=== PATIENT | female | born 1940 | race Caucasian/White ===

== ENCOUNTER 2017-08-29 06:21 | Inpatient (IN) | payer MEDICARE ==
[2017-08-29] VITALS (8 sets, daily range): BP systolic 103–149; BP diastolic 61–92; PULSE 71–96; RESP 20–26; TEMP 97.2–98.4; O2SAT 91–95
[~2017-08-29] VITALS: Ht 157.5 cm; Wt 76.8 kg
[~2017-08-29 06:21] MED LIST: ASPI81TA82 PO; CAPT50TA PO; CARV12.52 OR; DOXY100T OR; FLON0.053; FURO1TAB93 PO; LORA10TA7 PO; NITR0.4S SL; PLAV75TA PO; POTA20IN3 PO
[2017-08-29] MEDS ORDERED: RESP: ALBUTEROL 2.5 MG/IPRATROPIUM 0.5 MG NEB (SCH) NEB ONE (06:30)
[2017-08-29] MEDS ORDERED: ASPIRIN 81 MG CHEW TAB PO ONE (06:30)
[2017-08-29] MEDS ORDERED: SODIUM CHLORIDE 0.9% FLUSH 10 ML FLUSH IVF PRN (06:30)
[2017-08-29] MEDS ORDERED: NITROGLYCERIN 2% OINT 1 GM PACKET TOP ONE (06:30)
--- NOTE | 2017-08-29 06:34 | PD ---
HPI Chief Complaint: Respiratory Distress Time Seen by Provider: 06:27 Travel History International Travel<30 days: No Contact w/Intl Traveler<30days: No Traveled to known affect area: No History of Present Illness HPI 77-year-old female presents to the emergency department from home by EMS transport for complaint of sudden onset progressively worsening shortness of breath since last evening. Patient has known existing history of CAD with previous myocardial infarction dilated ischemic cardiomyopathy with left bundle branch block AICD pacemaker hypertension and episodes of flash pulmonary edema. Patient has had issues in the past with medication noncompliance or dietary discretion as triggers. Patient also has history of dyslipidemia previous CABG coronary stenting and prior alcohol use. Patient denies any recent febrile illness or productive cough. Patient had dyspnea on exertion and orthopnea. Patient did take 40 mg of Lasix this morning on her own prior to arrival of EMS and EMS gave her an additional 30 mg of Lasix. PFSH Past Medical History Narrative Medical CAD AL CHF/pulmonary edema AICD pacemaker; cholecystectomy; alcohol use; nursing notes reviewed Arthritis: Yes Asthma: No Autoimmune Disease: No Anxiety: Yes Depression: No Heart Rhythm Problems: Yes Cancer: Yes (SKIN) Cardiovascular Problems: Yes High Cholesterol: No Chemotherapy: No Chest Pain: Yes Congestive Heart Failure: Yes COPD: No Diabetes: No Endocrine: No Gastrointestinal Disorders: No GERD: No Genitourinary: No Hiatal Hernia: No Heparin Induced Thrombocytopen: No Hypertension: Yes Immune Disorder: No Implanted Vascular Access Dvce: No Kidney Stones: No Neurologic: No Psychiatric: No Reproductive: No Respiratory: Yes Myocardial Infarction: Yes (x2) Radiation Therapy: No Renal Failure: No Sickle Cell Disease: No Sleep Apnea: No Thyroid Disease: No Ulcer: No Menopausal: Yes Tubal Ligation: Yes Past Surgical History Abdominal Surgery: Yes AICD: No Arteriovenous Shunt: No Cardiac Surgery: Yes (stent x1 2012) Cholecystectomy: Yes (1998) Coronary Artery Bypass Graft: Yes (1991 1 vessel bypassed) Ear Surgery: No Endocrine Surgery: No Eye Surgery: No Genitourinary Surgery: No Gynecologic Surgery: Yes Insulin Pump: No Joint Replacement: No Neurologic Surgery: No Oral Surgery: No Pacemaker: No Thoracic Surgery: No Tonsillectomy: Yes Other Surgery: Yes Social History Alcohol Use: Yes ( 1- 2 DRINKS A DAY) Tobacco Use: No Substance Use: No Allergies-Medications (Allergen,Severity, Reaction): Coded Allergies: lovastatin (Unverified Allergy, Severe, SKIN RASH AND ITCHING, 08/29/17) acetaminophen (Unverified Adverse Reaction, Severe, "AGITATION ,DRY MOUTH , RAPID HEARTBEAT", 08/29/17) adhesive (Unverified Adverse Reaction, Severe, "SKIN KIM", 08/29/17) amoxicillin (Unverified Adverse Reaction, Severe, "DIARRHEA", 08/29/17) atenolol (Unverified Adverse Reaction, Severe, "INSOMNIA, NERVOUSNESS", 08/29/17) atorvastatin (Unverified Adverse Reaction, Severe, "EXTREME FATIGUE AND ANXIETY", 08/29/17) cetirizine (Unverified Adverse Reaction, Severe, "FATIGUE AND DROWSINESS" , 08/29/17) ciprofloxacin (Unverified Adverse Reaction, Severe, "HOT FLUSHING", 08/29/17 ) codeine (Unverified Adverse Reaction, Severe, "AGITATION, DRY MOUTH , RAPID HEARTBEAT", 08/29/17) diazepam (Unverified Adverse Reaction, Severe, "TREMORS", 08/29/17) digoxin (Unverified Adverse Reaction, Severe, "DIARRHEA AND NAUSEA", ) diltiazem (Unverified Adverse Reaction, Severe, "DIARRHEA", 08/29/17) epinephrine (Unverified Adverse Reaction, Severe, "HEART RACES, FAINTING" , 08/29/17) fexofenadine (Unverified Adverse Reaction, Severe, "EXTREME FATIGUE AND DROWSINESS", 08/29/17) lidocaine (Unverified Adverse Reaction, Severe, "EXTREME FLUSHING, HOT FEELING", 08/29/17) losartan (Unverified Adverse Reaction, Severe, "MADE HEART FEEL IT WAS LABORING TO WORK", 08/29/17) meperidine (Unverified Adverse Reaction, Severe, "DIZZINESS, RAPID HEARTBEAT", 08/29/17) procaine (Unverified Adverse Reaction, Severe, "RAPID HEARTBEAT", 08/29/17) propoxyphene (Unverified Adverse Reaction, Severe, "AGITATION ,DRY MOUTH, RAPID HEARTBEAT", 08/29/17) Uncoded Allergies: HISMANEL (Adverse Reaction, Severe, "EXTREME FATIGUE AND PVC'S, 06/29/10) SELDANE (Adverse Reaction, Severe, "PVC'S", 06/29/10) Reported Meds & Prescriptions Reported Meds & Active Scripts Active Reported Flonase Nasal Roy (Fluticasone Nasal Roy) 50 Mcg/Act Roy 100 Mcg EACH NARE BID Claritin (Loratadine) 10 Mg Cap 10 Mg PO DAILY Aspirin 81 Mg Chew 81 Mg CHEW DAILY Doxycycline (Doxycycline (Monohydrate)) 100 Mg Cap Eliquis (Apixaban) 5 Mg Tab 5 Mg PO BID Lasix (Furosemide) 40 Mg Tab 40 Mg PO DAILY [Capoten] 50 Mg PO BID TWICE DAILY PLUS 1/2 MG @ 1500. Coreg (Carvedilol) 12.5 Mg Tab 12.5 Mg PO BID Review of Systems Except as stated in HPI: all other systems reviewed are Neg General / Constitutional: No: Fever, Chills HENT: No: Congestion Cardiovascular: No: Chest Pain or Discomfort, Edema Respiratory: Positive: Shortness of Breath, Orthopnea, No: Pleuritic Pain Gastrointestinal: No: Nausea, Vomiting, Abdominal Pain Genitourinary: No: Dysuria Musculoskeletal: No: Myalgias, Arthralgias Skin: No Rash Neurologic: No: Weakness, Dizziness, Syncope Psychiatric: No: Anxiety Hematologic/Lymphatic: No: Easy Bruising Physical Exam Narrative GENERAL: Well-developed well-nourished female and moderate respiratory distress after receiving Lasix supplemental oxygen and sublingual nitroglycerin in route to the hospital SKIN: Warm and dry. HEAD: Normocephalic. EYES: No scleral icterus. No injection or drainage. NECK: Supple, trachea midline. No JVD or lymphadenopathy. CARDIOVASCULAR: Regular rate and rhythm without murmurs, gallops, or rubs. RESPIRATORY: Breath sounds equal bilaterally. No accessory muscle use. Diminished breath sounds with bibasilar crackles GASTROINTESTINAL: Abdomen soft, non-tender, nondistended. MUSCULOSKELETAL: No cyanosis, or edema. BACK: Nontender without obvious deformity. No CVA tenderness. Data Data Last Documented VS Vital Signs Date Time Temp Pulse Resp B/P (MAP) Pulse Ox O2 Delivery O2 Flow Rate FiO2 08/29/17 06:35 95 BiPAP 55 08/29/17 06:35 128/84 (99) 08/29/17 06:28 94 26 Orders Orders Electrocardiogram (08/29/17 06:27) Basic Metabolic Panel (Bmp) (08/29/17 06:27) Ckmb (Isoenzyme) Profile (08/29/17 06:27) Complete Blood Count With Diff (08/29/17 06:27) Magnesium (Mg) (08/29/17 06:27) Prothrombin Time / Inr (Pt) (08/29/17 06:27) Act Partial Throm Time (Ptt) (08/29/17 06:27) Troponin I (08/29/17 06:27) Ecg Monitoring (08/29/17 06:27) Bilateral Bp Monitoring (08/29/17 06:27) Iv Access Insert/Monitor (08/29/17 06:27) Oximetry (08/29/17 06:27) Oxygen Administration (08/29/17 06:27) Aspirin Chew (Aspirin Chew) (08/29/17 06:30) Nitroglycerin 2% Oint (Nitroglycerin 2% (08/29/17 06:30) Sodium Chloride 0.9% Flush (Ns Flush) (08/29/17 06:30) Resp Bipap / Cpap Non Invas Vt (08/29/17 ) Albuterol-Ipratropium Neb (Duoneb Neb) (08/29/17 06:30) Chest, Single Ap (08/29/17 ) Lactic Acid (08/29/17 06:43) Blood Culture (08/29/17 06:43) CKMB (08/29/17 06:25) CKMB% (08/29/17 06:25) Labs Laboratory Tests Test 08/29/17 06:25 White Blood Count 7.4 TH/MM3 Red Blood Count 4.99 MIL/MM3 Hemoglobin 15.2 GM/DL Hematocrit 47.0 % Mean Corpuscular Volume 94.2 FL Mean Corpuscular Hemoglobin 30.5 PG Mean Corpuscular Hemoglobin Concent 32.4 % Red Cell Distribution Width 14.9 % Platelet Count 199 TH/MM3 Mean Platelet Volume 8.4 FL Neutrophils (%) (Auto) 64.8 % Lymphocytes (%) (Auto) 24.8 % Monocytes (%) (Auto) 7.0 % Eosinophils (%) (Auto) 3.0 % Basophils (%) (Auto) 0.4 % Neutrophils # (Auto) 4.8 TH/MM3 Lymphocytes # (Auto) 1.8 TH/MM3 Monocytes # (Auto) 0.5 TH/MM3 Eosinophils # (Auto) 0.2 TH/MM3 Basophils # (Auto) 0.0 TH/MM3 CBC Comment DIFF FINAL Differential Comment Prothrombin Time 11.0 SEC Prothromb Time International Ratio 1.1 RATIO Activated Partial Thromboplast Time 23.7 SEC Blood Urea Nitrogen 14 MG/DL Creatinine 0.96 MG/DL Random Glucose 178 MG/DL Calcium Level 8.5 MG/DL Magnesium Level 2.3 MG/DL Sodium Level 142 MEQ/L Potassium Level 4.4 MEQ/L Chloride Level 106 MEQ/L Carbon Dioxide Level 26.9 MEQ/L Anion Gap 9 MEQ/L Estimat Glomerular Filtration Rate 56 ML/MIN Lactic Acid Level 1.9 mmol/L Total Creatine Kinase 106 U/L Troponin I 0.31 NG/ML MDM Medical Decision Making Medical Screen Exam Complete: Yes Emergency Medical Condition: Yes Medical Record Reviewed: Yes Interpretation(s) EKG ventricular paced rhythm with occasional PVCs QS inferiorly age- indeterminate poor R-wave progression liana laterally Differential Diagnosis Dyspnea/pulmonary edema CHF ACS AL renal insufficiency renal failure pneumonia PE Narrative Course Patient received from EMS stretcher placed on teletypesetter monitor with continuous pulse oximetry IV access obtained specimens collected and sent for resulting prior to arrival patient is received a total of 70 mg of Lasix p.o. and IV administration sublingual nitroglycerin 1 and arrived with CPAP has been transitioned to BiPAP. Patient is symptomatically improved. Specimens collected and sent for resulting At 7:20 PM care signed over to Dr. Maxwell for follow-up of pending labs and patient disposition with plan for admission Jacquelyn Colin MD Aug 29, 2017 06:34
[2017-08-29] MEDS ORDERED: FURO1TAB60 PO (06:35)
[2017-08-29] MEDS ORDERED: FLUT1SPR5 EACH NARE (06:35)
[2017-08-29] MEDS ORDERED: ASPI-516 CHEW (06:35)
[2017-08-29] MEDS ORDERED: CLAR10CA3 PO (06:35)
[2017-08-29] MEDS ORDERED: APIX5TAB PO (06:35)
[2017-08-29] MEDS ORDERED: DOXY1CAP91 (06:35)
[2017-08-29] MEDS ORDERED: CAPOTEN PO (06:35)
[2017-08-29] MEDS ORDERED: CARV12.5 PO (06:35)
[2017-08-29 06:54] LABS: AUTOMATED NEUTROPHIL # 4.8 TH/MM3 (1.8-7.7); BASOPHIL % 0.4 % (0.0-2.0); EOSINOPHIL # 0.2 TH/MM3 (0-0.4); HEMOGLOBIN 15.2 GM/DL (11.6-15.3); LYMPH % 24.8 % (9.0-44.0); LYMPHOCYTE # 1.8 TH/MM3 (1.0-4.8); MEAN CELL VOLUME 94.2 FL (80.0-100.0); MEAN CORPUSCULAR HEMOGLOBIN 30.5 PG (27.0-34.0); MEAN CORPUSCULAR HGB CONC 32.4 % (32.0-36.0); MEAN PLATELET VOLUME 8.4 FL (7.0-11.0); MONOCYTE # 0.5 TH/MM3 (0-0.9); NEUT % 64.8 % (16.0-70.0); PLATELET COUNT 199 TH/MM3 (150-450); RED BLOOD COUNT 4.99 MIL/MM3 (4.00-5.30); RED CELL DISTRIBUTION WIDTH 14.9 % (11.6-17.2); WHITE BLOOD COUNT 7.4 TH/MM3 (4.0-11.0)
--- NOTE | 2017-08-29 06:57 | RADRPT ---
EXAM DATE: 08/29/2017 6:50 AM EDT AGE/SEX: 77 years / Female INDICATIONS: Shortness of breath. CLINICAL DATA: This is the patient's initial encounter. Patient reports that signs and symptoms have been present for 1 day and indicates a pain score of 0/10. MEDICAL/SURGICAL HISTORY: None. Pacemaker. CABG. COMPARISON: [facility] [place], CHEST SINGLE AP, 08/13/2012. . FINDINGS: Single upright AP view the chest demonstrates persistent bilateral basilar airspace opacities. Heart size is mildly enlarged. Pulmonary vasculature is normal in caliber. Dual lead AICD. CONCLUSION: Stable appearance of emphysema and bilateral basilar atelectasis. Electronically signed by: Kaylee Castillo MD 08/29/2017 6:56 AM EDT
[2017-08-29 07:07] LABS: BICARBONATE 26.9 MEQ/L (21.0-32.0); BLOOD UREA NITROGEN 14 MG/DL (7-18); CALCIUM 8.5 MG/DL (8.5-10.1); CHLORIDE 106 MEQ/L (98-107); CREATININE 0.96 MG/DL (0.50-1.00); GLOMERULAR FILTRATION RATE 56 ML/MIN (>89); GLUCOSE,RANDOM 178 MG/DL (74-106); INTERNATIONAL NORMALIZED RATIO 1.1 RATIO; MAGNESIUM 2.3 MG/DL (1.5-2.5); SODIUM (NA) 142 MEQ/L (136-145)
[2017-08-29 07:10] LABS: TROPONIN I 0.31 NG/ML (0.02-0.05)
--- NOTE | 2017-08-29 07:45 | PD ---
Physical Exam Narrative Received sign out from previous team to follow up labs and admit patient. 77yo F with CHF, CAD s/p CABG, HLD here with sob since last night. Pt was given lasix IV by EVAC and took PO lasix herself prior to arrival. Pt was placed on BIPAP by EVAC and has been more comfortable on the BIPAP in the ED. Labs reviewed, no leukocytosis. Troponin is elevated at 0.31. Lactic acid normal at 1.9. CXR showed stable appearance of emphysema and bilateral basilar atelectasis. Pt was admitted in 2013 for pulmonary edema and elevated troponin which Dr. Marie felt was due to cardiac enzyme leak from acute on chronic systolic congestive heart failure. Pt evaluated at bedside and states she feels much better on the BIPAP. She is saturating at 98% on BIPAP. She does have bilateral lower lung crackles. She was given a nitroglycerin paste and aspirin. Will take pt off BIPAP and use it as needed and observe pt today and trend troponin. Pt doing well off Bipap on nasal cannula. Pt has no chest pain , also feel elevated troponin may be secondary to acute on chronic CHF exacerbation. BNP added and elevated at 998. Discussed with resident physician and accepted to Dr. Tobias's service. Data Data Last Documented VS Vital Signs Date Time Temp Pulse Resp B/P (MAP) Pulse Ox O2 Delivery O2 Flow Rate FiO2 08/29/17 08:08 96 24 149/67 (94) 93 BiPAP 08/29/17 06:35 55 Orders Orders Electrocardiogram (08/29/17 06:27) Basic Metabolic Panel (Bmp) (08/29/17 06:27) Ckmb (Isoenzyme) Profile (08/29/17 06:27) Complete Blood Count With Diff (08/29/17 06:27) Magnesium (Mg) (08/29/17 06:27) Prothrombin Time / Inr (Pt) (08/29/17 06:27) Act Partial Throm Time (Ptt) (08/29/17 06:27) Troponin I (08/29/17:27) Ecg Monitoring (08/29/17:27) Bilateral Bp Monitoring (08/29/17 06:27) Iv Access Insert/Monitor (08/29/17:27) Oximetry (08/29/17:27) Oxygen Administration (08/29/17 06:27) Aspirin Chew (Aspirin Chew) (08/29/17 06:30) Nitroglycerin 2% Oint (Nitroglycerin 2% (08/29/17 06:30) Sodium Chloride 0.9% Flush (Ns Flush) (08/29/17 06:30) Resp Bipap / Cpap Non Invas Vt (08/29/17 ) Albuterol-Ipratropium Neb (Duoneb Neb) (08/29/17 06:30) Chest, Single Ap (08/29/17 ) Lactic Acid (08/29/17 06:43) Blood Culture (08/29/17 06:43) CKMB (08/29/17 06:25) CKMB% (08/29/17 06:25) B-Type Natriuretic Peptide (08/29/17 07:50) Admit Order (Ed Use Only) (08/29/17 08:17) Labs Laboratory Tests Test 08/29/17 06:25 White Blood Count 7.4 TH/MM3 Red Blood Count 4.99 MIL/MM3 Hemoglobin 15.2 GM/DL Hematocrit 47.0 % Mean Corpuscular Volume 94.2 FL Mean Corpuscular Hemoglobin 30.5 PG Mean Corpuscular Hemoglobin Concent 32.4 % Red Cell Distribution Width 14.9 % Platelet Count 199 TH/MM3 Mean Platelet Volume 8.4 FL Neutrophils (%) (Auto) 64.8 % Lymphocytes (%) (Auto) 24.8 % Monocytes (%) (Auto) 7.0 % Eosinophils (%) (Auto) 3.0 % Basophils (%) (Auto) 0.4 % Neutrophils # (Auto) 4.8 TH/MM3 Lymphocytes # (Auto) 1.8 TH/MM3 Monocytes # (Auto) 0.5 TH/MM3 Eosinophils # (Auto) 0.2 TH/MM3 Basophils # (Auto) 0.0 TH/MM3 CBC Comment DIFF FINAL Differential Comment Prothrombin Time 11.0 SEC Prothromb Time International Ratio 1.1 RATIO Activated Partial Thromboplast Time 23.7 SEC Blood Urea Nitrogen 14 MG/DL Creatinine 0.96 MG/DL Random Glucose 178 MG/DL Calcium Level 8.5 MG/DL Magnesium Level 2.3 MG/DL Sodium Level 142 MEQ/L Potassium Level 4.4 MEQ/L Chloride Level 106 MEQ/L Carbon Dioxide Level 26.9 MEQ/L Anion Gap 9 MEQ/L Estimat Glomerular Filtration Rate 56 ML/MIN Lactic Acid Level 1.9 mmol/L Total Creatine Kinase 106 U/L Creatine Kinase MB 2.6 NG/ML Troponin I 0.31 NG/ML B-Type Natriuretic Peptide 998 PG/ML MDM Supervised Visit with ELVA: No Diagnosis Primary Impression: Acute on chronic systolic congestive heart failure Admitting Information Admitting Physician Requests: it Khushbu Maxwell DO Aug 29, 2017 07:45
--- NOTE | 2017-08-29 08:22 | HHI.HP ---
[facility] Service Family Medicine Primary Care Physician Kalina Astudillo MD Admission Diagnosis Acute on chronic CHF exacerbation, elevated troponin Diagnoses: International Travel<30 Days: No Contact w/Intl Traveler<30days: No Known Affected Area: No History of Present Illness Patient is a 77-year-old female with past history of myocardial infarction 2, CABG, A. fib, hypertension, CHF who presents today for shortness of breath. She reports that for the past week she has had increasing shortness of breath. It was mildly improved by increasing her daily Coreg. She was taking 12.5 in the morning and 18.75 at night, she increased it to 12.5 in the morning and 25 at night. This improved her breathing for traumatic time, however this morning her breathing was worse and she believed she needed to go to the hospital. She states it feels similar to the last time she had flash pulmonary edema in 2013. She also reports a cramps in her legs and feet this past week, however attributes it to a recent calorie restricted diet she is on. She increased her potassium intake and the cramps resolved. She denies redness, swelling of her legs, immobilization or surgery in the past 4 weeks, previous PE or DVT, hemoptysis, previous malignancy. She states she went to her manager of training, Dr. Marie, and to check her pacemaker. She reports there was over 100 A. fib events over the last week. She did note some occasional palpitations, however usually they are subtle. She reports a 1 pacemaker defibrillation in the past, however none recently. She reports she has dyspnea on exertion. While in the ED she reports her breathing has improved on BiPAP. States she does not use CPAP at night. Denies chest pain, headache, change in vision, nausea, vomiting, fever, chills, abdominal pain, change in bowel or bladder habits. No other complaints today. flash edema, since 2012,2013. Problems breathing for passed week, upped coreg. Started 12.5 am nd 25 pm. cut the night down to 18. went back 25 last week. and felt better. Cramps in legs and feet. Increased potassium because on low lucie diet, cramps went away. Sinus and allergy problems. Frank office last for pacer check. over 100 afib over last week. No CPAP at night. MURRAY worsening. Pacer for "bad heart" defib went off 1 time in the past, none recently. -VALERIO, vision, chest pain, abd, n/v/f/c diarrhea const, SOb better now, (Shaheen Gotti MD R1) Review of Systems Constitutional: DENIES: Fever, Chills Endocrine: DENIES: Polydipsia, Polyuria Eyes: DENIES: Blurred vision, Diplopia, Eye inflammation, Eye pain, Vision loss , Photosensitivity, Double Vision Ears, nose, mouth, throat: COMPLAINS OF: Tinnitus (history of), Running Nose, DENIES: Hearing loss, Ear Pain, Epistaxis Respiratory: COMPLAINS OF: Shortness of breath, DENIES: Cough, Wheezing, Hemoptysis, Sputum production Cardiovascular: COMPLAINS OF: Palpitations, Dyspnea on Exertion, DENIES: Chest pain Gastrointestinal: DENIES: Abdominal pain, Black stools, Bloody stools, Constipation, Diarrhea, Nausea Genitourinary: DENIES: Urinary frequency, Hematuria, Dysuria Integumentary: DENIES: Abnormal pigmentation, Rash Hematologic/lymphatic: DENIES: Bruising, Lymphadenopathy Immunologic/allergic: DENIES: Eczema, Urticaria Neurologic: COMPLAINS OF: Abnormal gait (nots some unsteady gait), DENIES: Headache, Localized weakness, Paresthesias Psychiatric: COMPLAINS OF: Anxiety, DENIES: Confusion, Mood changes, Suicidal Ideation, Homicidal Ideation (Shaheen Gotti MD R1) Past Family Social History Past Medical History PR x 2 CABG AFIB HTN Flash pulmonary edema CHF Seasonal allergies Past Surgical History Cholecystectomy 1999 Pacemaker 2013 (Shaheen Gotti MD R1) Allergies: Coded Allergies: lovastatin (Unverified Allergy, Severe, SKIN RASH AND ITCHING, 08/29/17) acetaminophen (Unverified Adverse Reaction, Severe, "AGITATION ,DRY MOUTH , RAPID HEARTBEAT", 08/29/17) adhesive (Unverified Adverse Reaction, Severe, "SKIN KIM", 08/29/17) amoxicillin (Unverified Adverse Reaction, Severe, "DIARRHEA", 08/29/17) atenolol (Unverified Adverse Reaction, Severe, "INSOMNIA, NERVOUSNESS", 08/29/17) atorvastatin (Unverified Adverse Reaction, Severe, "EXTREME FATIGUE AND ANXIETY", 08/29/17) cetirizine (Unverified Adverse Reaction, Severe, "FATIGUE AND DROWSINESS" , 08/29/17) ciprofloxacin (Unverified Adverse Reaction, Severe, "HOT FLUSHING", 08/29/17 ) codeine (Unverified Adverse Reaction, Severe, "AGITATION, DRY MOUTH , RAPID HEARTBEAT", 08/29/17) diazepam (Unverified Adverse Reaction, Severe, "TREMORS", 08/29/17) digoxin (Unverified Adverse Reaction, Severe, "DIARRHEA AND NAUSEA", ) diltiazem (Unverified Adverse Reaction, Severe, "DIARRHEA", 08/29/17) epinephrine (Unverified Adverse Reaction, Severe, "HEART RACES, FAINTING" , 08/29/17) fexofenadine (Unverified Adverse Reaction, Severe, "EXTREME FATIGUE AND DROWSINESS", 08/29/17) lidocaine (Unverified Adverse Reaction, Severe, "EXTREME FLUSHING, HOT FEELING", 08/29/17) losartan (Unverified Adverse Reaction, Severe, "MADE HEART FEEL IT WAS LABORING TO WORK", 08/29/17) meperidine (Unverified Adverse Reaction, Severe, "DIZZINESS, RAPID HEARTBEAT", 08/29/17) procaine (Unverified Adverse Reaction, Severe, "RAPID HEARTBEAT", 08/29/17) propoxyphene (Unverified Adverse Reaction, Severe, "AGITATION ,DRY MOUTH, RAPID HEARTBEAT", 08/29/17) Uncoded Allergies: HISMANEL (Adverse Reaction, Severe, "EXTREME FATIGUE AND PVC'S, 06/29/10) SELDANE (Adverse Reaction, Severe, "PVC'S", 06/29/10) Family History Father: Stroke at 51, heart disease Mother: Heart disease Social History EtOH: glass of wine a day Tobacco: used to smoke 1ppd for 30 years, quit 1989 Drugs: None (Shaheen Gotti MD R1) Physical Exam Vital Signs Vital Signs Date Time Temp Pulse Resp B/P (MAP) Pulse Ox O2 Delivery O2 Flow Rate FiO2 08/29/17 08:08 96 24 149/67 (94) 93 BiPAP 08/29/17 06:35 95 BiPAP 55 08/29/17 06:35 BiPAP 55 08/29/17 06:35 128/84 (99) 08/29/17 06:35 95 BiPAP 55 08/29/17 06:28 94 26 147/92 (110) 94 08/29/17 06:25 93 55 Physical Exam GENERAL: This is a well-nourished, well-developed patient, in no apparent distress. SKIN: No rashes, ecchymoses or lesions. Cool and dry. HEAD: Atraumatic. Normocephalic. No temporal or scalp tenderness. EYES: Pupils equal round and reactive. Extraocular motions intact. No scleral icterus. No injection or drainage. ENT: Nose without bleeding, purulent drainage or septal hematoma. Throat without erythema, tonsillar hypertrophy or exudate. Uvula midline. Airway patent. NECK: Trachea midline. No JVD or lymphadenopathy. Supple, nontender, no meningeal signs. CARDIOVASCULAR: Regular rate and rhythm without murmurs, gallops, or rubs. Rate/ rhythm take by auscultation and coinciding palpation at bedside. RESPIRATORY: Breath sounds equal bilaterally. Rales at b/l lung bases. No wheezes, or rhonchi. GASTROINTESTINAL: Abdomen soft, non-tender, nondistended. No hepato-splenomegaly , or palpable masses. No guarding. MUSCULOSKELETAL: Extremities without clubbing, cyanosis, or edema. No joint tenderness, effusion, or edema noted. No calf tenderness. Negative Homans sign bilaterally. NEUROLOGICAL: Awake and alert. Cranial nerves II through XII intact. Motor and sensory grossly within normal limits. Five out of 5 muscle strength in all muscle groups. Normal speech. Laboratory Laboratory Tests Test 08/29/17 06:25 White Blood Count 7.4 Red Blood Count 4.99 Hemoglobin 15.2 Hematocrit 47.0 Mean Corpuscular Volume 94.2 Mean Corpuscular Hemoglobin 30.5 Mean Corpuscular Hemoglobin Concent 32.4 Red Cell Distribution Width 14.9 Platelet Count 199 Mean Platelet Volume 8.4 Neutrophils (%) (Auto) 64.8 Lymphocytes (%) (Auto) 24.8 Monocytes (%) (Auto) 7.0 Eosinophils (%) (Auto) 3.0 Basophils (%) (Auto) 0.4 Neutrophils # (Auto) 4.8 Lymphocytes # (Auto) 1.8 Monocytes # (Auto) 0.5 Eosinophils # (Auto) 0.2 Basophils # (Auto) 0.0 CBC Comment DIFF FINAL Differential Comment Prothrombin Time 11.0 Prothromb Time International Ratio 1.1 Activated Partial Thromboplast Time 23.7 Blood Urea Nitrogen 14 Creatinine 0.96 Random Glucose 178 Calcium Level 8.5 Magnesium Level 2.3 Sodium Level 142 Potassium Level 4.4 Chloride Level 106 Carbon Dioxide Level 26.9 Anion Gap 9 Estimat Glomerular Filtration Rate 56 Lactic Acid Level 1.9 Total Creatine Kinase 106 Creatine Kinase MB 2.6 Troponin I 0.31 Date/Time Source Procedure Growth Status 08/29/17 06:50 Blood Peripheral Aerobic Blood Culture Pending Received 08/29/17 06:50 Blood Peripheral Anaerobic Blood Culture Pending Received (Shaheen Gotti MD R1) Result Diagram: 08/29/1762408/29/17624 Caprini VTE Risk Assessment Caprini VTE Risk Assessment: Mod/High Risk (score >= 2) (Shaheen Gotti MD R1) Assessment and Plan Assessment and Plan 77-year-old female with past history of myocardial infarction 2, CABG, A. fib, hypertension, CHF who presented for shortness of breath. Requiring BIPAP in ED. Likely acute on chronic CHF exacerbation. Well's score of 0. No signs of DVT. Code Status Full Discussed Condition With ED physician (Shaheen Gotti MD R1) Attending Attestation Patient seen and examined, discussed with resident team. I agree with assessment and management as documented and discussed with me. The patient has been seen and examined. The chart and all resident notes have been reviewed. I agree that inpatient care is appropriate and that a two midnight stay is expected for the reasons documented in the resident history and physical. I have discussed this with the resident and certify the resident s order for inpatient admission. Dianna Lin is a 77yo lady with significant heart history - chronic systolic CHF with EF 30-35%, AICD, a fib, and h/o flash pulmonary edema admitted after experiencing worsening SOB. She is being treated for CHF exacerbation as documented. At the time of my exam, she remains on oxygen supplementation by nasal cannula, having required BiPAP earlier in the day. Additional diagnosis: hyperglycemia: No known treatment for diabetes mellitus. May be stress response. Will monitor glucose in morning labs, and treat if needed. (Kira Tobias MD) Problem List: (1) Acute on chronic systolic congestive heart failure ICD Codes: I50.23 - Acute on chronic systolic congestive heart failure Status: Acute Plan: Patient with past history of CHF, currently with shortness of breath, crackles. Improves on BiPAP. Troponin on admission 0.31. Known to manager of training Dr. Marie. Echocardiogram in 2013 shows EF 30-35% -BiPAP as needed -Lasix 40 mg twice daily -Follow-up troponins, EKGs -Follow-up cardiology recommendations -CXR tomorrow (2) Elevated troponin I level ICD Codes: R79.89 - Elevated troponin I level Status: Acute Plan: Patient with elevated troponin of 0.31 on admission. Historically between 0.23 and 2.33. -Follow-up lab work as above (3) Afib ICD Codes: I48.91 - Unspecified atrial fibrillation Plan: History of A. fib. Reports many recent events of A. fib when having her pacemaker examined this past week. Not in A. fib when examined on admission. -Continue current outpatient meds -Follow-up cardiology or condition (4) Hypertension ICD Codes: I10 - Hypertension Status: Chronic Plan: History of hypertension. -Continue home medications (5) Parotid gland fullness ICD Codes: K11.8 - Other diseases of salivary glands Plan: History of right parotid gland scarring. On Doxycycline daily outpatient. -Continue home medications (6) FEN Plan: Fluids: -Tolerating p.o. Electrolytes: -Monitor and replete as needed Nutrition: -Tolerating p.o. PPx: -On Eliquis (Shaheen Gotti MD R1) Physician Certification 2 Midnight Certification Type: Admission for Inpatient Services Order for Inpatient Services The services are ordered in accordance with Medicare regulations or non- Medicare payer requirements, as applicable. In the case of services not specified as inpatient-only, they are appropriately provided as inpatient services in accordance with the 2-midnight benchmark. Estimated LOS (days): 2 2 days is the estimated time the patient will need to remain in the hospital, assuming treatment plan goals are met and no additional complications. Post-Hospital Plan: Home (Shaheen Gotti MD R1) Shaheen Gotti MD R1 Aug 29, 2017 08:21 Kira Tobias MD Aug 29, 2017 20:05
[2017-08-29] MEDS: SODIUM CHLORIDE 0.9% FLUSH 10 ML FLUSH IV FLUSH SCH ×2 (09:00→21:00)
[2017-08-29] MEDS ORDERED: SODIUM CHLORIDE 0.9% FLUSH 10 ML FLUSH IV FLUSH PRN (09:00)
[2017-08-29] MEDS: FUROSEMIDE 40 MG/4 ML VIAL IVP SCH ×2 (09:00→18:23)
[2017-08-29] MEDS: POTASSIUM CHLORIDE 20 MEQ CONTROLLED RELEASE TAB PO SCH ×2 (11:28→21:29)
[2017-08-29] MEDS ORDERED: EPLERENONE 25 MG TAB PO ONE (12:00)
--- NOTE | 2017-08-29 14:25 | EKG ---
Date Performed: 08/29/2017 Time Performed: 06:43:12 PTAGE: 77 years EKG: Generally atrial sense of ventricular paced rhythm with fairly frequent ventricular ectopy present. PREVIOUS TRACING : 08/26/2013 00.06 Since previous tracing, left bundle branch block has been replaced with paced rhythm. The ventricular ectopy is new. DOCTOR: Tomi Christianson Interpretating Date/Time 08/29/2017 14:23:32
--- NOTE | 2017-08-29 15:07 | MB ---
cc: Nj Bhat MD, David A MD DATE: 08/29/2017 REASON FOR CONSULTATION: Shortness of breath and congestive heart failure. PRIMARY CARE PHYSICIAN: Dr. Kalina Astudillo. HISTORY OF PRESENT ILLNESS: Ms. Lin is a 77-year-old white female with a history of ischemic cardiomyopathy, chronic systolic congestive heart failure, prior coronary artery bypass grafting, remote myocardial infarction x 2, paroxysmal atrial fibrillation, who presented to the emergency room this morning via [facility] because of paroxysmal nocturnal dyspnea last night. She tells me that she has not been feeling well over the past 2 weeks. She did have her defibrillator interrogated a couple of days ago at Dr. Marie's office and although it was functioning normally, she was told she was having frequent episodes of atrial fibrillation. She has not felt those and has had no tachycardia. She has been taking her medication as directed. She denies any angina. She has had no defibrillator discharges. CURRENT MEDICATIONS: Include: 1. Aspirin 81 mg daily. 2. Claritin 10 mg daily. 3. Flonase nasal spray 2 sprays each nostril daily. 4. Eliquis 5 mg b.i.d. 5. Carvedilol 12.5 mg b.i.d. She was taking 25 in the evening and 12.5 in the morning at home. 6. Captopril 50 mg b.i.d. 7. Furosemide 40 mg IV b.i.d. She was on 20 mg p.o. daily at home. 8. Potassium chloride 20 mEq p.o. b.i.d. ALLERGIES: EXTENSIVE LIST OF MEDICATION INTOLERANCES INCLUDING LOVASTATIN, ACETAMINOPHEN, ADHESIVE TAPE, AMOXICILLIN, ATENOLOL, ATORVASTATIN, CETIRIZINE, CIPROFLOXACIN, CODEINE, DIAZEPAM, DIGOXIN, DILTIAZEM, EPINEPHRINE, FEXOFENADINE, LIDOCAINE, LOSARTAN, MEPERIDINE, PROCAINE, PROPOXYPHENE, HISMANAL. PAST MEDICAL HISTORY: As mentioned above. In addition, she has had longstanding hypertension, recurrent episodes of flash pulmonary edema, seasonal allergies. Two myocardial infarctions remote in the . Denies history of stroke or diabetes. PAST SURGICAL HISTORY: Cholecystectomy in 1998, MOLDER OFFBEARER-D pacemaker defibrillator 2013. FAMILY HISTORY: Heart disease in father and mother. SOCIAL HISTORY: The patient consumes 1 glass of wine daily. She was a cigarette smoker of 1 pack a day for 30 years, quit in 1989. No illicit drug use. REVIEW OF SYSTEMS: Denies lower extremity edema or claudication. She does describe recent orthopnea and PND type symptoms. She denies any angina. She denies any fevers, chills, night sweats, nausea, vomiting or diarrhea. Denies bleeding or clotting disorders. Except for that mentioned in the HPI, a complete 14-point review of systems is otherwise negative. PHYSICAL EXAMINATION: GENERAL: Reveals an elderly, overweight, white female sitting up in bed in no distress at this time. VITAL SIGNS: Blood pressure 149/67 mmHg, heart rate is 96 and regular, respiratory rate 24, temperature afebrile. Oxygen saturation 93%. She was on BiPAP earlier. She is currently on nasal cannula oxygen. HEENT: Head is normocephalic and atraumatic. Pupils equal, round, reactive to light. Sclerae are anicteric. Extraocular movements intact. NECK: Supple. There is no adenopathy. There is mild jugular venous distention at 90 degrees. Carotid upstrokes normal. No bruits. Thyroid exam is normal. LUNGS: Clear at this time. HEART: PMI is slightly displaced and diffuse. S1, S2 are normal. Frequent premature contractions. There is a grade I/ systolic murmur at the base. No diastolic murmur, gallops, or rubs. ABDOMEN: Obese. Bowel sounds present. Soft and nontender. No hepatosplenomegaly, masses, or bruits. EXTREMITIES: No cyanosis, clubbing or edema. Perfusion is adequate in the upper and lower extremities. There are no femoral bruits. NEUROLOGIC: Nonfocal. DIAGNOSTIC STUDIES: An EKG from the emergency room this morning shows a sinus rhythm with electronic dual chamber pacemaker rhythm with premature ventricular contractions. Chest x-ray shows stable appearance of emphysema and bilateral basilar atelectasis. LABORATORY DATA: CBC: White count 7.4; hemoglobin 15.2; platelet count 199,000. Coags are normal. Electrolytes are normal with a potassium of 4.4, BUN 14, creatinine 0.96, glucose 178. Lactic acid 1.9. Troponin I 0.31. CPK 106. Magnesium 2.3. BNP 998. IMPRESSION: 1. Acute on chronic systolic congestive heart failure. 2. Atherosclerotic heart disease with elevated troponin I. 3. Hypertensive heart disease. 4. Intolerances to multiple medications. 5. Moderate left ventricular dysfunction, status post MOLDER OFFBEARER-D therapy. Functioning normally on recent interrogation. 6. Paroxysmal atrial fibrillation, currently in AV paced rhythm. 7. History of chronic left bundle branch block. RECOMMENDATIONS: I agree with increasing the aggressiveness of her diuresis and continue intravenous Lasix for the next 24 hours 40 mg q.12 hours. Follow I's and O's closely. Continue to monitor serial cardiac enzymes to see if they are trending up. Continue to monitor on telemetry. Leave Coreg 12.5 mg BID for now. Add Inspra 25 mg p.o. daily. Maintain electrolyte balance and a potassium of 4.0. I will continue to follow her over the weekend with additional recommendations as required. I thank you for allowing us to participate in the care of this patient. MD DONYA Shelton/HERNESTO , 12:13 PM , 03:06 PM MAURICIO
[2017-08-29 20:08] LABS: TROPONIN I 0.25 NG/ML (0.02-0.05)
[2017-08-29] MEDS: CARVEDILOL 12.5 MG TAB PO SCH (21:29)
[2017-08-29] MEDS: CAPTOPRIL 50 MG TAB PO SCH (21:29)
[2017-08-29] MEDS: APIXABAN 5 MG TABLET PO SCH (21:29)
[2017-08-30] VITALS: BP 135/81; PULSE 70; PULSE 71; RESP 20; TEMP 97.6; O2SAT 96
[2017-08-30 04:00] VITALS: BP 133/92; PULSE 75; PULSE 79; RESP 20; TEMP 97.9; O2SAT 98
--- NOTE | 2017-08-30 07:34 | PD.CARD.PN ---
Subjective Subjective Remarks Feeling better. Denies SOB or CP today. Only complaint is congested sinuses. Objective Medications Current Medications Medications (Trade) Dose Ordered Sig/Cooper Route Start Time Stop Time Status Last Admin (NS Flush) 2 ml BID IV FLUSH 08/29/17 09:00 08/29/17 21:00 (NS Flush) 2 ml UNSCH PRN IV FLUSH 08/29/17 09:00 (Lasix Inj) 40 mg BID@,18 IVP 08/29/17 09:00 08/29/17 18:23 (KCl) 20 meq BID PO 08/29/17 09:00 08/29/17 21:29 (Eliquis) 5 mg BID PO 08/29/17 21:00 08/29/17 21:29 (Aspirin Chew) 81 mg DAILY CHEW 08/30/17 09:00 (Coreg) 12.5 mg BID PO 08/29/17 21:00 08/29/17 21:29 (Claritin) 10 mg DAILY PO 08/30/17 09:00 (Flonase Faustino Spr) 2 spray DAILY EACH NARE 08/30/17 09:00 (Capoten) 50 mg BID PO 08/29/17 21:00 08/29/17 21:29 (Inspra) 25 mg DAILY PO 08/30/17 09:00 (Vibramycin) 100 mg DAILY PO 08/30/17 09:00 Vital Signs / I&O Vital Signs Date Time Temp Pulse Resp B/P (MAP) Pulse Ox O2 Delivery O2 Flow Rate FiO2 08/30/17 04:00 Nasal Cannula 4.00 08/30/17 04:00 75 08/30/17 04:00 97.9 79 20 133/92 (106) 98 08/30/17 00:00 Nasal Cannula 4.00 08/30/17 00:00 71 08/30/17 00:00 97.6 70 20 135/81 (99) 96 08/29/17 20:00 87 08/29/17 20:00 Nasal Cannula 4.00 08/29/17 20:00 97.8 72 20 103/61 (75) 94 08/29/17 16:00 98.4 78 20 136/80 (98) 94 08/29/17 12:00 97.7 77 20 140/79 (99) 91 08/29/17 12:00 87 08/29/17 10:27 Nasal Cannula 4.00 08/29/17 10:11 08/29/17 10:07 97.2 71 20 115/69 (84) 92 08/29/17 08:08 96 24 149/67 (94) 93 BiPAP I/O 08/29/17 08/29/17 08/29/17 08/30/17 08/30/17 08/30/17 07:00 15:00 23:00 07:00 15:00 23:00 Intake Total 480 ml 520 ml Output Total 300 ml Balance -300 ml 480 ml 520 ml Intake Oral 480 ml 520 ml Output Urine Total 300 ml # Voids 2 4 3 # Bowel Movements 0 1 Physical Exam VSS, afebrile No JVD @ 90 deg. Lungs: CTA Heart: Reg, s1, s2, 1/6 systolic murmur at base. Ext: No C/C/E Neuro: Non-focal Laboratory Laboratory Tests Test 08/29/17 13:02 08/29/17 19:11 Troponin I 0.26 NG/ML 0.25 NG/ML Total Creatine Kinase 124 U/L Imaging Last 48 hours Impressions Chest X-Ray 08/29/17 0000 Signed Impressions: CONCLUSION: Stable appearance of emphysema and bilateral basilar atelectasis. Assessment and Plan Assessment and Plan 1. Acute on chronic systolic congestive heart failure. Inproving. Change IV lasix to 40 PO daily today 2. Atherosclerotic heart disease with elevated troponin I indeterminate and not trending up. Likely due to exacerbation CHF. 3. Hypertensive heart disease. 4. Intolerances to multiple medications. 5. Moderate left ventricular dysfunction, status post ENERGY SPECIALIST-D therapy. Functioning normally on recent interrogation. 6. Paroxysmal atrial fibrillation, currently in AV paced rhythm. 7. History of chronic left bundle branch block. Code Status Full Discussed Condition With Discussed plans with patient. Dr. Marie's service [facility] doctor will see on Thursday. Nj Bhat MD Aug 30, 2017 07:34
[2017-08-30 07:36] LABS: HEMATOCRIT 42.7 % (35.0-46.0); HEMOGLOBIN 14.1 GM/DL (11.6-15.3); MEAN CELL VOLUME 94.4 FL (80.0-100.0); MEAN CORPUSCULAR HEMOGLOBIN 31.2 PG (27.0-34.0); MEAN PLATELET VOLUME 8.4 FL (7.0-11.0); PLATELET COUNT 157 TH/MM3 (150-450); RED BLOOD COUNT 4.53 MIL/MM3 (4.00-5.30); RED CELL DISTRIBUTION WIDTH 14.4 % (11.6-17.2); WHITE BLOOD COUNT 6.7 TH/MM3 (4.0-11.0)
[2017-08-30 08:00] VITALS: BP 135/67; PULSE 68; PULSE 73; RESP 20; TEMP 97.6; O2SAT 95
[2017-08-30 08:04] LABS: BICARBONATE 28.5 MEQ/L (21.0-32.0); CALCIUM 8.7 MG/DL (8.5-10.1); CREATININE 0.7 MG/DL (0.50-1.00)
[2017-08-30] MEDS: FLUTICASONE PROPIONATE 50 MCG/ACT 16 GM NASAL SPRAY EACH NARE SCH (09:00)
--- NOTE | 2017-08-30 10:00 | HHI.FPPN ---
Subjective Remarks No acute issues overnight. Vitals are stable, patient remains afebrile. Her O2 saturation is now 95% on RA and she denies any chest pain or shortness of breath. She continues to feel fatigued, but notes overall improvement in symptoms. She is tolerating PO. She has had 9 voids in the past 24 hours. (Jennifer Orozco MD R3) Objective Vitals Vital Signs Date Time Temp Pulse Resp B/P (MAP) Pulse Ox O2 Delivery O2 Flow Rate FiO2 08/30/17 04:00 Nasal Cannula 4.00 08/30/17 04:00 75 08/30/17 04:00 97.9 79 20 133/92 (106) 98 08/30/17 00:00 Nasal Cannula 4.00 08/30/17 00:00 71 08/30/17 00:00 97.6 70 20 135/81 (99) 96 08/29/17 20:00 87 08/29/17 20:00 Nasal Cannula 4.00 08/29/17 20:00 97.8 72 20 103/61 (75) 94 08/29/17 16:00 98.4 78 20 136/80 (98) 94 08/29/17 12:00 97.7 77 20 140/79 (99) 91 08/29/17 12:00 87 08/29/17 10:27 Nasal Cannula 4.00 08/29/17 10:11 08/29/17 10:07 97.2 71 20 115/69 (84) 92 I/O 08/29/17 08/29/17 08/29/17 08/30/17 08/30/17 08/30/17 07:00 15:00 23:00 07:00 15:00 23:00 Intake Total 480 ml 520 ml Output Total 300 ml Balance -300 ml 480 ml 520 ml Intake Oral 480 ml 520 ml Output Urine Total 300 ml # Voids 2 4 3 # Bowel Movements 0 1 (Jennifer Orozco MD R3) Result Diagram: 08/30/17 0700 08/30/17 0700 Imaging Last Impressions Chest X-Ray 08/29/17 0000 Signed Impressions: CONCLUSION: Stable appearance of emphysema and bilateral basilar atelectasis. Objective Remarks GENERAL: Well-nourished, well-developed female patient in no acute distress. SKIN: Warm and dry. HEAD: Normocephalic. EYES: No scleral icterus. No injection or drainage. NECK: Supple, trachea midline. No JVD or lymphadenopathy. CARDIOVASCULAR: Regular rate and rhythm without murmurs, gallops, or rubs. RESPIRATORY: Breath sounds equal bilaterally. No accessory muscle use. GASTROINTESTINAL: Abdomen soft, non-tender, nondistended. MUSCULOSKELETAL: No cyanosis, or edema. BACK: Nontender without obvious deformity. (Jennifer Orozco MD R3) A/P Assessment and Plan 77-year-old female with past history of myocardial infarction 2, CABG, A. fib, hypertension, CHF who presented for shortness of breath and was admitted for acute on chronic CHF exacerbation. Discharge Planning Anticipate discharge home tomorrow. (Jennifer Orozco MD R3) Attending Attestation Patient seen, examined, and discussed with resident team. I agree with assessment and management as documented and discussed with me. Pt reports breathing is better. She is tolerating Inspra. Wean off O2 as able - 95% on room air at the time of interview/exam this morning. Apprecaite cardiology. (Kira Tobias MD) Problem List: (1) Acute on chronic systolic congestive heart failure ICD Codes: I50.23 - Acute on chronic systolic congestive heart failure Status: Acute Plan: Improving. Now tolerating RA. BNP trending down. Troponin on admission 0.31, stable overnight. Known to oracle database architect Dr. Marie. Echocardiogram in 2012 shows EF 30-35% -Supplemental O2 PRN -Transition from Lasix 40 mg IV twice daily to 40mg PO daily -Cardiology consulted- appreciate recommendations (2) Afib ICD Codes: I48.91 - Unspecified atrial fibrillation Plan: History of A. fib. Reports many recent events of A. fib when having her pacemaker examined this past week. -Continue current outpatient meds (3) Hypertension ICD Codes: I10 - Hypertension Status: Chronic Plan: Stable. 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 On Doxycycline daily outpatient. -Continue home medications (5) FEN Status: Acute Plan: Fluids: -Tolerating p.o. Electrolytes: -Monitor and replete as needed Nutrition: -Heart Healthy Diet PPx: -On Eliquis (Jennifer Orozco MD R3) Problem Qualifiers (1) Afib: Qualified Codes: I48.2 - Chronic atrial fibrillation (2) Hypertension: Qualified Codes: I10 - Essential (primary) hypertension Jennifer Orozco MD R3 Aug 30, 2017 10:00 Kira Tobias MD Aug 30, 2017 14:42
[2017-08-30] MEDS: APIXABAN 5 MG TABLET PO SCH ×2 (10:15→21:07)
[2017-08-30] MEDS: DOXYCYCLINE HYCLATE 100 MG CAP PO SCH (10:15)
[2017-08-30] MEDS: CARVEDILOL 12.5 MG TAB PO SCH ×2 (10:16→21:07)
[2017-08-30] MEDS: CAPTOPRIL 50 MG TAB PO SCH ×2 (10:16→21:07)
[2017-08-30] MEDS: ASPIRIN 81 MG CHEW TAB CHEW SCH (10:16)
[2017-08-30] MEDS: SODIUM CHLORIDE 0.9% FLUSH 10 ML FLUSH IV FLUSH SCH ×2 (10:16→21:07)
[2017-08-30] MEDS: EPLERENONE 25 MG TAB PO SCH (10:16)
[2017-08-30] MEDS: LORATADINE 10 MG TAB PO SCH (10:16)
[2017-08-30] MEDS: POTASSIUM CHLORIDE 20 MEQ CONTROLLED RELEASE TAB PO SCH ×2 (10:18→21:00)
[2017-08-30] MEDS: FUROSEMIDE 40 MG TAB PO SCH (10:25)
[2017-08-30 12:00] VITALS: BP 114/62; PULSE 61; PULSE 64; RESP 20; TEMP 97.8; O2SAT 93
--- NOTE | 2017-08-30 15:43 | EKG ---
Date Performed: 08/29/2017 Time Performed: 18:58:00 PTAGE: 77 years EKG: ELECTRONIC VENTRICULAR PACEMAKER ABNORMAL RHYTHM ECG PREVIOUS TRACING : 08/29/2017 06.43 Occassional PVC present. Since the previous tracing, no sig nificant change noted. DOCTOR: Tomi Christianson Interpretating Date/Time 08/30/2017 15:42:57
[2017-08-30 16:00] VITALS: BP 129/73; PULSE 68; RESP 20; TEMP 98.2; O2SAT 92
[2017-08-30 20:00] VITALS: BP 129/61; PULSE 79; PULSE 82; RESP 20; TEMP 98.3; O2SAT 93
[2017-08-31] VITALS: BP 125/66; PULSE 65; PULSE 71; RESP 18; TEMP 98.1; O2SAT 97
[2017-08-31 04:00] VITALS: BP 145/61; PULSE 64; PULSE 71; RESP 18; TEMP 97.3; O2SAT 97
[2017-08-31 08:00] VITALS: PULSE 82
[2017-08-31 08:06] VITALS: BP 165/78; PULSE 77; RESP 18; TEMP 98.4; O2SAT 97
[2017-08-31] MEDS: SODIUM CHLORIDE 0.9% FLUSH 10 ML FLUSH IV FLUSH SCH (09:00)
[2017-08-31] MEDS: POTASSIUM CHLORIDE 20 MEQ CONTROLLED RELEASE TAB PO SCH (09:00)
[2017-08-31] MEDS: FLUTICASONE PROPIONATE 50 MCG/ACT 16 GM NASAL SPRAY EACH NARE SCH (09:00)
[2017-08-31] MEDS: LORATADINE 10 MG TAB PO SCH (10:10)
[2017-08-31] MEDS: FUROSEMIDE 40 MG TAB PO SCH (10:11)
[2017-08-31] MEDS: DOXYCYCLINE HYCLATE 100 MG CAP PO SCH (10:11)
[2017-08-31] MEDS: APIXABAN 5 MG TABLET PO SCH (10:11)
[2017-08-31] MEDS: CAPTOPRIL 50 MG TAB PO SCH (10:11)
[2017-08-31] MEDS: EPLERENONE 25 MG TAB PO SCH (10:11)
[2017-08-31] MEDS: CARVEDILOL 12.5 MG TAB PO SCH (10:11)
[2017-08-31] MEDS: ASPIRIN 81 MG CHEW TAB CHEW SCH (10:11)
--- NOTE | 2017-08-31 11:33 | HHI.FPPN ---
Subjective Remarks 77 yo female with CHF admitted for SOB from pulmonary edema now being seen for follow up. Today she feels back to normal. No CP/SOB. Off oxygen and comfortable. No swelling of the legs. (Silverio Alejandre MD R2) Objective Vitals Vital Signs Date Time Temp Pulse Resp B/P (MAP) Pulse Ox O2 Delivery O2 Flow Rate FiO2 08/31/17 08:06 98.4 77 18 165/78 (107) 97 08/31/17 08:00 82 08/31/17 08:00 Nasal Cannula 4.00 08/31/17 04:00 Nasal Cannula 4.00 08/31/17 04:00 97.3 71 18 145/61 (89) 97 08/31/17 04:00 64 08/31/17 00:00 Nasal Cannula 4.00 08/31/17 00:00 65 08/31/17 00:00 98.1 71 18 125/66 (85) 97 08/30/17 20:00 98.3 79 20 129/61 (83) 93 08/30/17 20:00 82 08/30/17 20:00 Nasal Cannula 4.00 08/30/17 16:00 68 08/30/17 16:00 98.2 68 20 129/73 (91) 92 08/30/17 12:00 97.8 64 20 114/62 (79) 93 08/30/17 12:00 61 I/O 08/30/17 08/30/17 08/30/17 08/31/17 08/31/17 08/31/17 06:59 14:59 22:59 06:59 14:59 22:59 Intake Total 520 ml 600 ml Balance 520 ml 600 ml Intake Oral 520 ml 600 ml # Voids 3 6 # Bowel Movements 1 2 (Silverio Alejandre MD R2) Result Diagram: 08/30/17 0700 08/30/17 0700 Imaging Last Impressions Chest X-Ray 08/29/17 0000 Signed Impressions: CONCLUSION: Stable appearance of emphysema and bilateral basilar atelectasis. Objective Remarks GENERAL: Well-nourished, well-developed female patient in no acute distress. SKIN: Warm and dry. NECK: Supple, trachea midline. No JVD or lymphadenopathy. CARDIOVASCULAR: Regular rate and rhythm without murmurs, gallops, or rubs. RESPIRATORY: CTAB. No crackles or wheezes. No accessory muscle use. GASTROINTESTINAL: Abdomen soft, non-tender, nondistended. MUSCULOSKELETAL: No cyanosis or edema. Medications and IVs Current Medications Medications (Trade) Dose Ordered Sig/Cooper Route Start Time Stop Time Status Last Admin (NS Flush) 2 ml BID IV FLUSH 08/29/17 09:00 08/30/17 21:07 (NS Flush) 2 ml UNSCH PRN IV FLUSH 08/29/17 09:00 (KCl) 20 meq BID PO 08/29/17 09:00 08/30/17 10:18 (Eliquis) 5 mg BID PO 08/29/17 21:00 08/31/17 10:11 (Aspirin Chew) 81 mg DAILY CHEW 08/30/17 09:00 08/31/17 10:11 (Coreg) 12.5 mg BID PO 08/29/17 21:00 08/31/17 10:11 (Claritin) 10 mg DAILY PO 08/30/17 09:00 08/31/17 10:10 (Flonase Faustino Spr) 2 spray DAILY EACH NARE 08/30/17 09:00 (Capoten) 50 mg BID PO 08/29/17 21:00 08/31/17 10:11 (Inspra) 25 mg DAILY PO 08/30/17 09:00 08/31/17 10:11 (Vibramycin) 100 mg DAILY PO 08/30/17 09:00 08/31/17 10:11 (Lasix) 40 mg DAILY PO 08/30/17 09:15 08/31/17 10:11 (Silverio Alejandre MD R2) A/P Assessment and Plan 77-year-old female with past history of myocardial infarction 2, CABG, A. fib, hypertension, CHF presenting with: (Silverio Alejandre MD R2) Attending Attestation Patient seen and examined, discussed with resident team. I agree with assessment and management as documented and discussed with me. Pt without complaints. Lungs CTAB. Maintaining sats on room air. Discharge home today. (Kira Tobias MD) Problem List: (1) Acute on chronic systolic congestive heart failure ICD Codes: I50.23 - Acute on chronic systolic congestive heart failure Status: Resolved Plan: Resolved. Now tolerating RA. BNP trending down. Troponin on admission 0.31, stable since Known to mixer runner Dr. Marie. Echocardiogram in 2013 shows EF 30-35% -Home O2 walk test -Lasix 40mg PO daily -Cardiology consulted- appreciate recommendations -To evaluate patient today for probable d/c -Started eplerenone; will check BMP on discharge (2) Afib ICD Codes: I48.91 - Unspecified atrial fibrillation Status: Chronic Plan: Rate at goal History of A. fib. Reports many recent events of A. fib when having her pacemaker examined this past week. -Continue current outpatient meds (3) Hypertension ICD Codes: I10 - Hypertension Status: Chronic Plan: Stable. 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 On Doxycycline daily outpatient. -Continue home medications (5) FEN Status: Acute Plan: Fluids: -Tolerating p.o. Electrolytes: -Monitor and replete as needed Nutrition: -Heart Healthy Diet PPx: -On Eliquis Dispo: Home today pending cardiology clearance (Silverio Alejandre MD R2) Problem Qualifiers (1) Afib: Qualified Codes: I48.2 - Chronic atrial fibrillation (2) Hypertension: Qualified Codes: I10 - Essential (primary) hypertension Silverio Alejandre MD R2 Aug 31, 2017 11:33 Kira Tobias MD Aug 31, 2017 20:32
--- NOTE | 2017-08-31 11:38 | HHI.DCPOC ---
Discharge Care Plan Diagnosis: (1) Acute on chronic systolic congestive heart failure (2) Elevated troponin I level (3) Coronary artery disease (4) Afib Goals to Promote Your Health * To prevent worsening of your condition and complications * To maintain your health at the optimal level Directions to Meet Your Goals Take your medications as prescribed Follow your dietary instruction Follow activity as directed Keep your appointments as scheduled Take your immunizations and boosters as scheduled If your symptoms worsen call your PCP, if no PCP go to Urgent Care Center or Emergency Room Smoking is Dangerous to Your Health. Avoid second hand smoke Call the 24-hour hour crisis hotline for domestic abuse at Silverio Alejandre MD R2 Aug 31, 2017 11:38
[2017-08-31 12:06] VITALS: BP 126/68; PULSE 77; RESP 16; TEMP 97.9; O2SAT 96
--- NOTE | 2017-08-31 13:45 | PD.CARD.PN ---
Subjective Subjective Remarks No CP or edema, SOB improved, feels much better Objective Medications Current Medications Medications (Trade) Dose Ordered Sig/Cooper Route Start Time Stop Time Status Last Admin (NS Flush) 2 ml BID IV FLUSH 08/29/17 09:00 08/30/17 21:07 (NS Flush) 2 ml UNSCH PRN IV FLUSH 08/29/17 09:00 (KCl) 20 meq BID PO 08/29/17 09:00 08/30/17 10:18 (Eliquis) 5 mg BID PO 08/29/17 21:00 08/31/17 10:11 (Aspirin Chew) 81 mg DAILY CHEW 08/30/17 09:00 08/31/17 10:11 (Coreg) 12.5 mg BID PO 08/29/17 21:00 08/31/17 10:11 (Claritin) 10 mg DAILY PO 08/30/17 09:00 08/31/17 10:10 (Flonase Faustino Spr) 2 spray DAILY EACH NARE 08/30/17 09:00 (Capoten) 50 mg BID PO 08/29/17 21:00 08/31/17 10:11 (Inspra) 25 mg DAILY PO 08/30/17 09:00 08/31/17 10:11 (Vibramycin) 100 mg DAILY PO 08/30/17 09:00 08/31/17 10:11 (Lasix) 40 mg DAILY PO 08/30/17 09:15 08/31/17 10:11 Vital Signs / I&O Vital Signs Date Time Temp Pulse Resp B/P (MAP) Pulse Ox O2 Delivery O2 Flow Rate FiO2 08/31/17 08:06 98.4 77 18 165/78 (107) 97 08/31/17 08:00 82 08/31/17 08:00 Nasal Cannula 4.00 08/31/17 04:00 Nasal Cannula 4.00 08/31/17 04:00 97.3 71 18 145/61 (89) 97 08/31/17 04:00 64 08/31/17 00:00 Nasal Cannula 4.00 08/31/17 00:00 65 08/31/17 00:00 98.1 71 18 125/66 (85) 97 08/30/17 20:00 98.3 79 20 129/61 (83) 93 08/30/17 20:00 82 08/30/17 20:00 Nasal Cannula 4.00 08/30/17 16:00 68 08/30/17 16:00 98.2 68 20 129/73 (91) 92 I/O 08/30/17 08/30/17 08/30/17 08/31/17 08/31/17 08/31/17 07:00 15:00 23:00 07:00 15:00 23:00 Intake Total 520 ml 600 ml Balance 520 ml 600 ml Intake Oral 520 ml 600 ml # Voids 3 6 # Bowel Movements 1 2 Physical Exam GENERAL: In NAD SKIN: Warm and dry. HEAD: Normocephalic. EYES: No scleral icterus. No injection or drainage. NECK: Supple, trachea midline. No JVD or lymphadenopathy. CARDIOVASCULAR: Regular rate and rhythm with 1/6 syst murmur, no gallops or rubs. RESPIRATORY: Breath sounds equal bilaterally. No accessory muscle use. GASTROINTESTINAL: Abdomen soft, non-tender, nondistended. MUSCULOSKELETAL: No cyanosis, or edema. Assessment and Plan Problem List: (1) Acute on chronic systolic congestive heart failure ICD Codes: I50.23 - Acute on chronic systolic congestive heart failure Status: Resolved (2) Coronary artery disease ICD Codes: I25.10 - Coronary artery disease Status: Chronic (3) Elevated troponin I level ICD Codes: R79.89 - Elevated troponin I level Status: Acute (4) Afib ICD Codes: I48.91 - Unspecified atrial fibrillation Status: Chronic (5) Hypertension ICD Codes: I10 - Hypertension Status: Chronic (6) ICD (implantable cardioverter-defibrillator) in place ICD Codes: Z95.810 - Presence of automatic (implantable) cardiac defibrillator Assessment and Plan CHF improved with diuresis. Continue current program with furosemide. Continue GDMT for CHF. No evidence of ACS. BP control. Increase activity. OK to DC home as planned. F/u w Dr. Marie within 1 week as scheduled. Problem Qualifiers (1) Afib: Qualified Codes: I48.2 - Chronic atrial fibrillation (2) Hypertension: Qualified Codes: I10 - Essential (primary) hypertension Reta Vu MD Aug 31, 2017 13:45
[2017-08-31] MEDS ORDERED: EPLE25TA PO (13:55)
[2017-08-31] MEDS ORDERED: CAPT50TA PO (15:45)
--- NOTE | 2017-09-01 12:08 | HHI.DS ---
Discharge Summary Admission Date Aug 29, 2017 at 9:00 am Discharge Date: Aug 31, 2017 Admitting Diagnosis Acute on chronic CHF exacerbation, elevated troponin (1) Acute on chronic systolic congestive heart failure Diagnosis: Principal ICD Codes: I50.23 - Acute on chronic systolic congestive heart failure Status: Resolved (2) Afib Diagnosis: Secondary ICD Codes: I48.91 - Unspecified atrial fibrillation Status: Chronic (3) Hypertension Diagnosis: Secondary ICD Codes: I10 - Hypertension Status: Chronic (4) Parotid gland fullness Diagnosis: Secondary ICD Codes: K11.8 - Other diseases of salivary glands Status: Chronic Consultants Cardiology - Drs. Vu and Jessica Brief History Patient is a 77-year-old female with past history of myocardial infarction 2, CABG, A. fib, hypertension, CHF who presents today for shortness of breath. She reports that for the past week she has had increasing shortness of breath. It was mildly improved by increasing her daily Coreg. She was taking 12.5 in the morning and 18.75 at night, she increased it to 12.5 in the morning and 25 at night. This improved her breathing for traumatic time, however this morning her breathing was worse and she believed she needed to go to the hospital. She states it feels similar to the last time she had flash pulmonary edema in 2013. She also reports a cramps in her legs and feet this past week, however attributes it to a recent calorie restricted diet she is on. She increased her potassium intake and the cramps resolved. She denies redness, swelling of her legs, immobilization or surgery in the past 4 weeks, previous PE or DVT, hemoptysis, previous malignancy. She states she went to her chopper gun operator, Dr. Marie, and to check her pacemaker. She reports there was over 100 A. fib events over the last week. She did note some occasional palpitations, however usually they are subtle. She reports a 1 pacemaker defibrillation in the past, however none recently. She reports she has dyspnea on exertion. While in the ED she reports her breathing has improved on BiPAP. States she does not use CPAP at night. Denies chest pain, headache, change in vision, nausea, vomiting, fever, chills, abdominal pain, change in bowel or bladder habits. No other complaints today. flash edema, since 2012,2013. Problems breathing for passed week, upped coreg. Started 12.5 am nd 25 pm. cut the night down to 18. went back 25 last week. and felt better. Cramps in legs and feet. Increased potassium because on low lucie diet, cramps went away. Sinus and allergy problems. Frank office last for pacer check. over 100 afib over last week. No CPAP at night. MURRAY worsening. Pacer for "bad heart" defib went off 1 time in the past, none recently. -VALERIO, vision, chest pain, abd, n/v/f/c diarrhea const, SOb better now, CBC/BMP: 08/30/17 0700 08/30/17 0700 Significant Findings Laboratory Tests Test 08/29/17 13:02 08/29/17 19:11 08/30/17 07:00 Troponin I 0.26 NG/ML (0.02-0.05) 0.25 NG/ML (0.02-0.05) Estimat Glomerular Filtration Rate 81 ML/MIN (>89) B-Type Natriuretic Peptide 363 PG/ML (0-100) Imaging Last Impressions Chest X-Ray 08/29/17 0000 Signed Impressions: CONCLUSION: Stable appearance of emphysema and bilateral basilar atelectasis. PE at Discharge GENERAL: Well-nourished, well-developed female patient in no acute distress. SKIN: Warm and dry. NECK: Supple, trachea midline. No JVD or lymphadenopathy. CARDIOVASCULAR: Regular rate and rhythm without murmurs, gallops, or rubs. RESPIRATORY: CTAB. No crackles or wheezes. No accessory muscle use. GASTROINTESTINAL: Abdomen soft, non-tender, nondistended. MUSCULOSKELETAL: No cyanosis or edema. Hospital Course 77 yo with AFib, CHF admitted for respiratory distress secondary to pulmonary edema from CHF. Her respiratory status improved with aggressive diuresis and sodium restriction / fluid restriction. After two days of treatment she was back to baseline. Eplerenone was added to her medication regimen during hospital stay. She also had ACS work up which was negative. She was cleared for discharge with outpatient cardiology follow up. Pt Condition on Discharge: Stable Discharge Disposition: Discharge Home Discharge Instructions DIET: Follow Instructions for: Heart Healthy Diet Activities you can perform: Regular-No Restrictions Follow up Referrals: Cardiology - 1 Week with Morgan Marie MD New Orders: BASIC METABOLIC PROF - 2 Weeks New Medications: Eplerenone (Eplerenone) 25 Mg Tab 25 MG PO DAILY, #30 TAB 1 Refill Continued Medications: Apixaban (Eliquis) 5 Mg Tab 5 MG PO BID for Blood Clot Prevention, #60 TAB 0 Refills Aspirin (Aspirin) 81 Mg Chew 81 MG CHEW DAILY, TAB 0 Refills Carvedilol (Coreg) 12.5 Mg Tab 12.5 MG PO BID, #60 TAB 0 Refills Doxycycline (Monohydrate) (Doxycycline) 100 Mg Cap Fluticasone Nasal [place] (Flonase Nasal [place]) 50 Mcg/Act [place] 100 MCG EACH NARE BID for Allergies, #1 BOTTLE 0 Refills Furosemide (Lasix) 40 Mg Tab 40 MG PO DAILY, #30 TAB 0 Refills Loratadine (Claritin) 10 Mg Cap 10 MG PO DAILY for Allergy Management, CAP 0 Refills Silverio Alejandre MD R2 Sep 01, 2017 12:08 pm
== END 2017-08-31 15:21 | disposition home or self-care (01) | DRG 292 ==
LOC: NEPC 06:21 → NEDA 08:19 → OBSVTOIN 09:00 → N04B 10:08
PROVIDERS: ADMIT Family Medicine; ATTEND Family Medicine
PROC: 5A09357 Assistance with Respiratory Ventilation, Less than 24 Consecutive Hours, Continuous Positive Airway Pressure (ICD-10-PCS; principal; 2017-08-29)
DX: I11.0 Hypertensive heart disease with heart failure (principal); J98.11 Atelectasis; J43.9 Emphysema, unspecified; I42.0 Dilated cardiomyopathy; I48.0 Paroxysmal atrial fibrillation; I50.23 Acute on chronic systolic (congestive) heart failure; I25.10 Atherosclerotic heart disease of native coronary artery without angina pectoris; E78.5 Hyperlipidemia, unspecified; R73.9 Hyperglycemia, unspecified; I25.5 Ischemic cardiomyopathy; R74.8 Abnormal levels of other serum enzymes; I44.7 Left bundle-branch block, unspecified; I48.2 Chronic atrial fibrillation; K11.8 Other diseases of salivary glands; R25.2 Cramp and spasm; M19.90 Unspecified osteoarthritis, unspecified site; J30.2 Other seasonal allergic rhinitis; Z95.1 Presence of aortocoronary bypass graft; Z85.828 Personal history of other malignant neoplasm of skin; Z82.3 Family history of stroke; Z82.49 Family history of ischemic heart disease and other diseases of the circulatory system; Z90.49 Acquired absence of other specified parts of digestive tract; Z95.810 Presence of automatic (implantable) cardiac defibrillator; I25.2 Old myocardial infarction; Z87.891 Personal history of nicotine dependence; Z79.01 Long term (current) use of anticoagulants; Z95.5 Presence of coronary angioplasty implant and graft
CPT/HCPCS: 71045; 80048; 82550; 82552; 83605; 83735; 83880; 84484; 85025; 85027; 85610; 85730; 87040; 93005; 94002; 94618; 94664; J1940

== ENCOUNTER 2017-09-21 08:07 | Inpatient (IN) | payer MEDICARE ==
[2017-09-21] VITALS (18 sets, daily range): BP systolic 117–189; BP diastolic 58–110; PULSE 62–110; RESP 18; TEMP 98.1–98.6; O2SAT 90–95
[~2017-09-21] VITALS: Ht 157.5 cm; Wt 80.0 kg
[~2017-09-21 08:07] MED LIST changes: +APIX5TAB PO; +ASPI-516 CHEW; -ASPI81TA82 PO; +CARV12.5 PO; -CARV12.52 OR; +CLAR10CA3 PO; -DOXY100T OR; +DOXY1CAP91; +EPLE25TA PO; -FLON0.053; +FLUT1SPR5 EACH NARE; +FURO1TAB60 PO; -FURO1TAB93 PO; -LORA10TA7 PO; -NITR0.4S SL; -PLAV75TA PO; -POTA20IN3 PO
--- NOTE | 2017-09-21 08:26 | PD ---
HPI Chief Complaint: Respiratory Distress Time Seen by Provider: 08:10 Travel History International Travel<30 days: No Contact w/Intl Traveler<30days: No Traveled to known affect area: No History of Present Illness HPI The patient is a 77-year-old female who presents to the emergency department via EMS for shortness of breath. The patient states she had difficulty sleeping all night, was unable to get comfortable, and this morning developed acute shortness of breath. The patient does have a history of acute flash pulmonary edema with recent hospitalization earlier this month. The patient is followed by her paver operator, Dr. Marie, and states her last echocardiogram was approximately 1-2 years ago. The patient denies any known history of COPD. She does complain of mild wheezing, is unsure if it is related to significant postnasal drainage or related to the lungs. The patient did take her Lasix this morning it was administered 1 DuoNeb and 2 albuterol nebulizers by EMS prior to arrival. The patient denies any known history of COPD and is not oxygen dependent at home. The patient denies any new cough or chest pain. She did complain of mild abdominal discomfort prior to the onset of her symptoms, but denies any acute chest pain. She denies any nausea, vomiting, or diaphoresis. The patient does have a history of intermittent atrial fibrillation is currently anticoagulated with Eliquis. The patient also has an event monitor and states that she had a button to send a message to her paver operator office this morning to investigate whether there was an underlying arrhythmia. PFSH Past Medical History Arthritis: Yes Asthma: No Autoimmune Disease: No Anxiety: Yes Depression: No Heart Rhythm Problems: Yes (hx afib) Cancer: Yes (SKIN) Cardiovascular Problems: Yes High Cholesterol: No Chemotherapy: No Chest Pain: Yes Congestive Heart Failure: Yes COPD: No Diabetes: No Endocrine: No Gastrointestinal Disorders: No GERD: No Genitourinary: No Hiatal Hernia: No Heparin Induced Thrombocytopen: No Hypertension: Yes Immune Disorder: No Implanted Vascular Access Dvce: No Kidney Stones: No Musculoskeletal: Yes Neurologic: No Psychiatric: No Reproductive: No Respiratory: No Myocardial Infarction: Yes (x2) Radiation Therapy: No Renal Failure: No Sickle Cell Disease: No Sleep Apnea: No Thyroid Disease: No Ulcer: No Menopausal: Yes Tubal Ligation: Yes Past Surgical History Abdominal Surgery: Yes (gallbladder 1998) AICD: Yes Arteriovenous Shunt: No Cardiac Surgery: Yes (stent x1 2013) Cholecystectomy: Yes (1998) Coronary Artery Bypass Graft: Yes (1991 1 vessel bypassed) Ear Surgery: No Endocrine Surgery: No Eye Surgery: No Genitourinary Surgery: No Gynecologic Surgery: Yes (tubal ligation) Insulin Pump: No Joint Replacement: No Neurologic Surgery: No Oral Surgery: No Pacemaker: No Thoracic Surgery: No Tonsillectomy: Yes Other Surgery: Yes Social History Alcohol Use: Yes ( 1- 2 DRINKS A DAY) Tobacco Use: No Substance Use: No Allergies-Medications (Allergen,Severity, Reaction): Coded Allergies: lovastatin (Unverified Allergy, Severe, SKIN RASH AND ITCHING, 09/21/17) acetaminophen (Unverified Adverse Reaction, Severe, "AGITATION ,DRY MOUTH , RAPID HEARTBEAT", 09/21/17) adhesive (Unverified Adverse Reaction, Severe, "SKIN KIM", 09/21/17) amoxicillin (Unverified Adverse Reaction, Severe, "DIARRHEA", 09/21/17) atenolol (Unverified Adverse Reaction, Severe, "INSOMNIA, NERVOUSNESS", ) atorvastatin (Unverified Adverse Reaction, Severe, "EXTREME FATIGUE AND ANXIETY", 09/21/17) cetirizine (Unverified Adverse Reaction, Severe, "FATIGUE AND DROWSINESS" , 09/21/17) ciprofloxacin (Unverified Adverse Reaction, Severe, "HOT FLUSHING", ) codeine (Unverified Adverse Reaction, Severe, "AGITATION, DRY MOUTH , RAPID HEARTBEAT", 09/21/17) diazepam (Unverified Adverse Reaction, Severe, "TREMORS", 09/21/17) digoxin (Unverified Adverse Reaction, Severe, "DIARRHEA AND NAUSEA", ) diltiazem (Unverified Adverse Reaction, Severe, "DIARRHEA", 09/21/17) epinephrine (Unverified Adverse Reaction, Severe, "HEART RACES, FAINTING" , 09/21/17) fexofenadine (Unverified Adverse Reaction, Severe, "EXTREME FATIGUE AND DROWSINESS", 09/21/17) lidocaine (Unverified Adverse Reaction, Severe, "EXTREME FLUSHING, HOT FEELING", 09/21/17) losartan (Unverified Adverse Reaction, Severe, "MADE HEART FEEL IT WAS LABORING TO WORK", 09/21/17) meperidine (Unverified Adverse Reaction, Severe, "DIZZINESS, RAPID HEARTBEAT", 09/21/17) procaine (Unverified Adverse Reaction, Severe, "RAPID HEARTBEAT", 09/21/17) propoxyphene (Unverified Adverse Reaction, Severe, "AGITATION ,DRY MOUTH, RAPID HEARTBEAT", 09/21/17) Uncoded Allergies: HISMANEL (Adverse Reaction, Severe, "EXTREME FATIGUE AND PVC'S, 06/29/10) SELDANE (Adverse Reaction, Severe, "PVC'S", 06/29/10) Reported Meds & Prescriptions Reported Meds & Active Scripts Active Reported Captopril 50 Mg Tab 50 Mg PO BID Take 1 hour before meals. Flonase Nasal [place] (Fluticasone Nasal [place]) 50 Mcg/Act [place] 100 Mcg EACH NARE BID Claritin (Loratadine) 10 Mg Cap 10 Mg PO DAILY Aspirin 81 Mg Chew 81 Mg CHEW DAILY Doxycycline (Doxycycline (Monohydrate)) 100 Mg Cap Eliquis (Apixaban) 5 Mg Tab 5 Mg PO BID Lasix (Furosemide) 40 Mg Tab 40 Mg PO DAILY Coreg (Carvedilol) 12.5 Mg Tab 12.5 Mg PO BID Review of Systems Except as stated in HPI: all other systems reviewed are Neg General / Constitutional: No: Fever HENT: No: Lightheadedness Cardiovascular: No: Chest Pain or Discomfort Respiratory: Positive: Shortness of Breath, Wheezing, No: Cough Gastrointestinal: Positive: Abdominal Pain (At the onset of symptoms patient had abdominal pain which is currently resolved), No: Nausea, Vomiting Musculoskeletal: No: Edema Physical Exam Narrative GENERAL: Awake, alert, pleasant 77-year-old female who appears her stated age and is in mild respiratory distress. SKIN: Focused skin assessment warm/dry. HEAD: Atraumatic. Normocephalic. EYES: Pupils equal and round. No scleral icterus. No injection or drainage. ENT: No nasal bleeding or discharge. Mucous membranes pink and moist. NECK: Trachea midline. No JVD. CARDIOVASCULAR: Regular, tachycardic with a heart rate of 110. RESPIRATORY: Tachypnea with a respiratory rate of 22. Crackles in the bases bilateral. GASTROINTESTINAL: Abdomen soft, non-tender, nondistended. MUSCULOSKELETAL: No obvious deformities. No clubbing. No cyanosis. No edema. Positive dorsalis pedal pulses bilaterally. NEUROLOGICAL: Awake and alert. No obvious cranial nerve deficits. Motor grossly within normal limits. Normal speech. PSYCHIATRIC: Appropriate mood and affect; insight and judgment normal. Data Data Last Documented VS Vital Signs Date Time Temp Pulse Resp B/P (MAP) Pulse Ox O2 Delivery O2 Flow Rate FiO2 09/21/17 08:24 91 Nasal Cannula 2.00 09/21/17 08:22 98.6 110 18 189/110 (136) Orders Orders Complete Blood Count With Diff (09/21/17 08:16) Comprehensive Metabolic Panel (09/21/17 08:16) B-Type Natriuretic Peptide (09/21/17 08:16) Act Partial Throm Time (Ptt) (09/21/17 08:16) Prothrombin Time / Inr (Pt) (09/21/17 08:16) Magnesium (Mg) (09/21/17 08:16) Ckmb (Isoenzyme) Profile (09/21/17 08:16) Troponin I (09/21/17 08:16) Iv Access Insert/Monitor (09/21/17 08:16) Electrocardiogram (09/21/17 08:16) Ecg Monitoring (09/21/17 08:16) Oximetry (09/21/17 08:16) Oxygen Administration (09/21/17 08:16) Chest, Pa & Lat (09/21/17 08:16) Sodium Chloride 0.9% Flush (Ns Flush) (09/21/17 08:30) Aspirin Chew (Aspirin Chew) (09/21/17 08:30) CKMB (09/21/17 08:25) CKMB% (09/21/17 08:25) Admit Order (Ed Use Only) (09/21/17 10:30) Labs Laboratory Tests Test 09/21/17 08:25 White Blood Count 11.1 TH/MM3 Red Blood Count 4.96 MIL/MM3 Hemoglobin 15.6 GM/DL Hematocrit 46.5 % Mean Corpuscular Volume 93.6 FL Mean Corpuscular Hemoglobin 31.4 PG Mean Corpuscular Hemoglobin Concent 33.6 % Red Cell Distribution Width 14.1 % Platelet Count 183 TH/MM3 Mean Platelet Volume 8.4 FL Neutrophils (%) (Auto) 80.1 % Lymphocytes (%) (Auto) 13.4 % Monocytes (%) (Auto) 5.3 % Eosinophils (%) (Auto) 1.0 % Basophils (%) (Auto) 0.2 % Neutrophils # (Auto) 8.9 TH/MM3 Lymphocytes # (Auto) 1.5 TH/MM3 Monocytes # (Auto) 0.6 TH/MM3 Eosinophils # (Auto) 0.1 TH/MM3 Basophils # (Auto) 0.0 TH/MM3 CBC Comment DIFF FINAL Differential Comment Prothrombin Time 10.7 SEC Prothromb Time International Ratio 1.1 RATIO Activated Partial Thromboplast Time 24.6 SEC Blood Urea Nitrogen 16 MG/DL Creatinine 0.97 MG/DL Random Glucose 130 MG/DL Total Protein 7.2 GM/DL Albumin 3.5 GM/DL Calcium Level 8.7 MG/DL Magnesium Level 2.0 MG/DL Alkaline Phosphatase 95 U/L Aspartate Amino Transf (AST/SGOT) 39 U/L Alanine Aminotransferase (ALT/SGPT) 32 U/L Total Bilirubin 0.5 MG/DL Sodium Level 141 MEQ/L Potassium Level 3.7 MEQ/L Chloride Level 106 MEQ/L Carbon Dioxide Level 23.7 MEQ/L Anion Gap 11 MEQ/L Estimat Glomerular Filtration Rate 56 ML/MIN Total Creatine Kinase 127 U/L Creatine Kinase MB 2.7 NG/ML Troponin I 0.29 NG/ML B-Type Natriuretic Peptide 547 PG/ML MDM Medical Decision Making Medical Screen Exam Complete: Yes Emergency Medical Condition: Yes Medical Record Reviewed: Yes Interpretation(s) EKG reveals electronic ventricular pacemaker with PVCs. Last Impressions Chest X-Ray 09/21/17 0816 Signed Impressions: CONCLUSION: 1. Cardiomegaly with mild positive fluid balance superimposed on chronic inter stitial changes. 2. Minimal bibasilar airspace disease, likely atelectasis. Laboratory Tests Test 09/21/17 08:25 White Blood Count 11.1 TH/MM3 Red Blood Count 4.96 MIL/MM3 Hemoglobin 15.6 GM/DL Hematocrit 46.5 % Mean Corpuscular Volume 93.6 FL Mean Corpuscular Hemoglobin 31.4 PG Mean Corpuscular Hemoglobin Concent 33.6 % Red Cell Distribution Width 14.1 % Platelet Count 183 TH/MM3 Mean Platelet Volume 8.4 FL Neutrophils (%) (Auto) 80.1 % Lymphocytes (%) (Auto) 13.4 % Monocytes (%) (Auto) 5.3 % Eosinophils (%) (Auto) 1.0 % Basophils (%) (Auto) 0.2 % Neutrophils # (Auto) 8.9 TH/MM3 Lymphocytes # (Auto) 1.5 TH/MM3 Monocytes # (Auto) 0.6 TH/MM3 Eosinophils # (Auto) 0.1 TH/MM3 Basophils # (Auto) 0.0 TH/MM3 CBC Comment DIFF FINAL Differential Comment Prothrombin Time 10.7 SEC Prothromb Time International Ratio 1.1 RATIO Activated Partial Thromboplast Time 24.6 SEC Blood Urea Nitrogen 16 MG/DL Creatinine 0.97 MG/DL Random Glucose 130 MG/DL Total Protein 7.2 GM/DL Albumin 3.5 GM/DL Calcium Level 8.7 MG/DL Magnesium Level 2.0 MG/DL Alkaline Phosphatase 95 U/L Aspartate Amino Transf (AST/SGOT) 39 U/L Alanine Aminotransferase (ALT/SGPT) 32 U/L Total Bilirubin 0.5 MG/DL Sodium Level 141 MEQ/L Potassium Level 3.7 MEQ/L Chloride Level 106 MEQ/L Carbon Dioxide Level 23.7 MEQ/L Anion Gap 11 MEQ/L Estimat Glomerular Filtration Rate 56 ML/MIN Total Creatine Kinase 127 U/L Creatine Kinase MB 2.7 NG/ML Troponin I 0.29 NG/ML B-Type Natriuretic Peptide 547 PG/ML Differential Diagnosis Differential diagnosis includes flash pulmonary edema, congestive heart failure , pleural effusion, ACS, STEMI, valvular disorder, pulmonary embolism, COPD, bronchitis, pneumonia. Narrative Course IV was established, labs are drawn and sent, and the patient was placed on cardiac telemetry monitoring and continuous pulse oximetry monitoring. EKG was ordered and interpreted. Chest x-ray was obtained. Chest x-ray reveals mild volume overload on chronic interstitial changes. BNP was greater than 500, troponin was positive at 0.29, this appears to be her baseline when compared to previous admissions. [employer] was paged to interrogate the patient's pacemaker , patient was noted to be hypoxic at 90% on room air. The patient was placed on 2 L which brought her oxygen levels up to 94%, she was reevaluated at 10:10 AM, still has mild shortness of breath and lethargy. The patient will be admitted as she does appear to have acute on chronic CHF with mild hypoxia. Patient may benefit from evaluation by her paver operator, Dr. Marie, as well as possible echocardiogram. The patient agrees and understands. Physician Communication Physician Communication [facility] were paged for admission. I discussed the patient with Dr. Horton who agrees with admission. Diagnosis Primary Impression: Acute on chronic systolic congestive heart failure Additional Impression: Elevated troponin I level Condition: Stable Shar Diallo MD Sep 21, 2017 08:26
[2017-09-21] MEDS ORDERED: SODIUM CHLORIDE 0.9% FLUSH 10 ML FLUSH IVF PRN (08:30)
[2017-09-21] MEDS ORDERED: ASPIRIN 81 MG CHEW TAB CHEW ONE (08:30)
[2017-09-21 09:02] LABS: AUTOMATED NEUTROPHIL # 8.9 TH/MM3 (1.8-7.7); BASOPHIL % 0.2 % (0.0-2.0); EOSINOPHIL # 0.1 TH/MM3 (0-0.4); HEMATOCRIT 46.5 % (35.0-46.0); HEMOGLOBIN 15.6 GM/DL (11.6-15.3); LYMPH % 13.4 % (9.0-44.0); LYMPHOCYTE # 1.5 TH/MM3 (1.0-4.8); MEAN CELL VOLUME 93.6 FL (80.0-100.0); MEAN CORPUSCULAR HEMOGLOBIN 31.4 PG (27.0-34.0); MEAN CORPUSCULAR HGB CONC 33.6 % (32.0-36.0); MEAN PLATELET VOLUME 8.4 FL (7.0-11.0); MONO % 5.3 % (0.0-8.0); MONOCYTE # 0.6 TH/MM3 (0-0.9); NEUT % 80.1 % (16.0-70.0); PLATELET COUNT 183 TH/MM3 (150-450); RED BLOOD COUNT 4.96 MIL/MM3 (4.00-5.30); RED CELL DISTRIBUTION WIDTH 14.1 % (11.6-17.2); WHITE BLOOD COUNT 11.1 TH/MM3 (4.0-11.0)
[2017-09-21 09:10] LABS: INTERNATIONAL NORMALIZED RATIO 1.1 RATIO; PROTHROMBIN TIME - PATIENT 10.7 SEC (9.8-11.6)
--- NOTE | 2017-09-21 09:16 | RADRPT ---
EXAM DATE: 09/21/2017 8:51 AM EDT AGE/SEX: 77 years / Female INDICATIONS: Shortness of breath. CLINICAL DATA: This is the patient's initial encounter. Patient reports that signs and symptoms have been present for 2 days and indicates a pain score of 0/10. MEDICAL/SURGICAL HISTORY: Congestive heart failure. Pacemaker. CABG. [place] [facility] [place]. . FINDINGS: Stable multilead AICD device with postsurgical features of prior median sternotomy and cardiac surger y. Redemonstration of lower lobe predominant diffuse interstitial prominence. Minimal by basilar airs pace disease. Cardiac silhouette is enlarged with slight indistinct central pulmonary vascularity. [place] ny thorax is intact. CONCLUSION: 1. Cardiomegaly with mild positive fluid balance superimposed on chronic interstitial changes. 2. Minimal bibasilar airspace disease, likely atelectasis. Electronically signed by: Narendra Cox MD 09/21/2017 9:15 AM EDT
[2017-09-21 09:17] LABS: ALBUMIN 3.5 GM/DL (3.4-5.0); AST (GOT) 39 U/L (15-37); BICARBONATE 23.7 MEQ/L (21.0-32.0); BLOOD UREA NITROGEN 16 MG/DL (7-18); CALCIUM 8.7 MG/DL (8.5-10.1); CHLORIDE 106 MEQ/L (98-107); CREATININE 0.97 MG/DL (0.50-1.00); GLOMERULAR FILTRATION RATE 56 ML/MIN (>89); GLUCOSE,RANDOM 130 MG/DL (74-106); SODIUM (NA) 141 MEQ/L (136-145)
[2017-09-21 09:18] LABS: ALT (GPT) 32 U/L (10-53)
[2017-09-21 09:24] LABS: ALKALINE PHOSPHATASE 95 U/L (45-117); TOTAL BILIRUBIN ADULT 0.5 MG/DL (0.2-1.0); TOTAL PROTEIN 7.2 GM/DL (6.4-8.2); TROPONIN I 0.29 NG/ML (0.02-0.05)
[2017-09-21] MEDS ORDERED: ONDANSETRON HCL 4 MG/2 ML VIAL IVP PRN (10:45)
[2017-09-21] MEDS ORDERED: ACETAMINOPHEN 325 MG TAB PO PRN (10:45)
[2017-09-21] MEDS ORDERED: SENNOSIDES 8.6 MG TAB PO PRN (10:45)
[2017-09-21] MEDS ORDERED: MAGNESIUM HYDROXIDE SUSP 30 ML CUP PO PRN (10:45)
[2017-09-21] MEDS ORDERED: LACTULOSE SYRUP 20 GM/30 ML CUP PO PRN (10:45)
[2017-09-21] MEDS ORDERED: NALOXONE HCL 0.4 MG/ML AMP IV PUSH PRN (10:45)
[2017-09-21] MEDS ORDERED: BISACODYL 10 MG SUPP RECTAL PRN (10:45)
[2017-09-21] MEDS ORDERED: SODIUM CHLORIDE 0.9% FLUSH 10 ML FLUSH IV FLUSH PRN (10:45)
[2017-09-21] MEDS ORDERED: FUROSEMIDE 20 MG/2 ML VIAL IV PUSH SCH (11:00)
--- NOTE | 2017-09-21 11:14 | HHI.HP ---
[facility] Service [facility] ([place], [place])ists Primary Care Physician Kalina Astudillo MD Admission Diagnosis Acute on chronic congestive heart failure, elevated troponin, hypoxi Diagnoses: (1) Elevated troponin I level (2) Acute on chronic systolic congestive heart failure (3) ICD (implantable cardioverter-defibrillator) in place (4) Hypertension (5) Coronary artery disease Chief Complaint: "Flash pulmonary edema" Travel History International Travel<30 Days: No Contact w/Intl Traveler <30 Da: No Traveled to Known Affected Are: No History of Present Illness The patient is a 77-year-old female with known history of congestive heart failure and multiple recent admissions who presented to the emergency department for complaint of "flash pulmonary edema". She states that she did not sleep well last night and developed worsening shortness of breath this morning. Her symptoms got much worse at about 7:00 this morning. She denies chest pain. She has an event monitor and pressed the button to notify her change management lead that she was potentially feeling an arrhythmia. She also has an implanted defibrillator, which has been interrogated by the [employer] rep this morning. It appears to be functioning normally. It did not fire. She states that she is feeling a little bit better at this time. She took her Lasix 40 mg this morning, but none of her other medications. Review of Systems Constitutional: DENIES: Fever, Chills, Night Sweats Eyes: DENIES: Blurred vision, Vision loss Ears, nose, mouth, throat: DENIES: Hearing loss Respiratory: COMPLAINS OF: Shortness of breath, DENIES: Cough, Wheezing, Sputum production Cardiovascular: COMPLAINS OF: Dyspnea on Exertion, DENIES: Chest pain, Palpitations, Lower Extremity Edema Gastrointestinal: DENIES: Abdominal pain, Constipation, Diarrhea, Nausea, Vomiting Genitourinary: DENIES: Urinary frequency, Urinary incontinence, Urgency, Hematuria, Dysuria, Nocturia Musculoskeletal: DENIES: Joint pain, Muscle aches Integumentary: DENIES: Pruritus, Rash Hematologic/lymphatic: DENIES: Bruising Neurologic: DENIES: Headache Past Family Social History Past Medical History Atrial fibrillation CAD Chronic systolic CHF Hypertension Hx of skin cancer Past Surgical History Cholecystectomy AICD placement Cardiac catheterization with stent placement CABG in 1991 Tubal ligation Tonsillectomy Reported Medications Captopril 50 Mg Tab 50 Mg PO BID Take 1 hour before meals. Flonase Nasal [place] (Fluticasone Nasal [place]) 50 Mcg/Act [place] 100 Mcg EACH NARE BID Claritin (Loratadine) 10 Mg Cap 10 Mg PO DAILY Aspirin 81 Mg Chew 81 Mg CHEW DAILY Doxycycline (Doxycycline (Monohydrate)) 100 Mg Cap Eliquis (Apixaban) 5 Mg Tab 5 Mg PO BID Lasix (Furosemide) 40 Mg Tab 40 Mg PO DAILY Coreg (Carvedilol) 12.5 Mg Tab 12.5 Mg PO BID Allergies: Coded Allergies: lovastatin (Unverified Allergy, Severe, SKIN RASH AND ITCHING, 09/21/17) acetaminophen (Unverified Adverse Reaction, Severe, "AGITATION ,DRY MOUTH , RAPID HEARTBEAT", 09/21/17) adhesive (Unverified Adverse Reaction, Severe, "SKIN KIM", 09/21/17) amoxicillin (Unverified Adverse Reaction, Severe, "DIARRHEA", 09/21/17) atenolol (Unverified Adverse Reaction, Severe, "INSOMNIA, NERVOUSNESS", ) atorvastatin (Unverified Adverse Reaction, Severe, "EXTREME FATIGUE AND ANXIETY", 09/21/17) cetirizine (Unverified Adverse Reaction, Severe, "FATIGUE AND DROWSINESS" , 09/21/17) ciprofloxacin (Unverified Adverse Reaction, Severe, "HOT FLUSHING", ) codeine (Unverified Adverse Reaction, Severe, "AGITATION, DRY MOUTH , RAPID HEARTBEAT", 09/21/17) diazepam (Unverified Adverse Reaction, Severe, "TREMORS", 09/21/17) digoxin (Unverified Adverse Reaction, Severe, "DIARRHEA AND NAUSEA", ) diltiazem (Unverified Adverse Reaction, Severe, "DIARRHEA", 09/21/17) epinephrine (Unverified Adverse Reaction, Severe, "HEART RACES, FAINTING" , 09/21/17) fexofenadine (Unverified Adverse Reaction, Severe, "EXTREME FATIGUE AND DROWSINESS", 09/21/17) lidocaine (Unverified Adverse Reaction, Severe, "EXTREME FLUSHING, HOT FEELING", 09/21/17) losartan (Unverified Adverse Reaction, Severe, "MADE HEART FEEL IT WAS LABORING TO WORK", 09/21/17) meperidine (Unverified Adverse Reaction, Severe, "DIZZINESS, RAPID HEARTBEAT", 09/21/17) procaine (Unverified Adverse Reaction, Severe, "RAPID HEARTBEAT", 09/21/17) propoxyphene (Unverified Adverse Reaction, Severe, "AGITATION ,DRY MOUTH, RAPID HEARTBEAT", 09/21/17) Uncoded Allergies: HISMANEL (Adverse Reaction, Severe, "EXTREME FATIGUE AND PVC'S, 06/29/10) SELDANE (Adverse Reaction, Severe, "PVC'S", 06/29/10) Family History CVA, heart disease Social History Drinks a glass of wine daily. Smokes 1 pack per day for 30 years but quit in 1989. Denies illicit drug use. Physical Exam Vital Signs Vital Signs Date Time Temp Pulse Resp B/P (MAP) Pulse Ox O2 Delivery O2 Flow Rate FiO2 09/21/17 11:03 70 18 135/71 (92) 95 Nasal Cannula 2.00 09/21/17 08:24 91 Nasal Cannula 2.00 09/21/17 08:22 98.6 110 18 189/110 (136) 92 Nasal Cannula 2.00 09/21/17 08:21 91 Nasal Cannula 2.00 09/21/17 08:12 90 Physical Exam GENERAL: Well-nourished, well-developed female in no acute distress. HEENT: Normocephalic, atraumatic. Pupils equal, round and reactive. Extraocular movements intact. No scleral icterus. No injection or drainage. Oropharynx is clear. Mucous membranes are moist. CARDIOVASCULAR: Regular rate and rhythm without murmurs, gallops, or rubs. RESPIRATORY: Decreased breath sounds at both bases, left greater than right. No wheezes, rales, or rhonchi. Breathing is non-labored. GASTROINTESTINAL: Abdomen soft, non-tender, nondistended. EXTREMITIES: No lower extremity edema. No calf tenderness. PSYCH: Alert and oriented x 3. Laboratory Laboratory Tests Test 09/21/17 08:25 White Blood Count 11.1 Red Blood Count 4.96 Hemoglobin 15.6 Hematocrit 46.5 Mean Corpuscular Volume 93.6 Mean Corpuscular Hemoglobin 31.4 Mean Corpuscular Hemoglobin Concent 33.6 Red Cell Distribution Width 14.1 Platelet Count 183 Mean Platelet Volume 8.4 Neutrophils (%) (Auto) 80.1 Lymphocytes (%) (Auto) 13.4 Monocytes (%) (Auto) 5.3 Eosinophils (%) (Auto) 1.0 Basophils (%) (Auto) 0.2 Neutrophils # (Auto) 8.9 Lymphocytes # (Auto) 1.5 Monocytes # (Auto) 0.6 Eosinophils # (Auto) 0.1 Basophils # (Auto) 0.0 CBC Comment DIFF FINAL Differential Comment Prothrombin Time 10.7 Prothromb Time International Ratio 1.1 Activated Partial Thromboplast Time 24.6 Blood Urea Nitrogen 16 Creatinine 0.97 Random Glucose 130 Total Protein 7.2 Albumin 3.5 Calcium Level 8.7 Magnesium Level 2.0 Alkaline Phosphatase 95 Aspartate Amino Transf (AST/SGOT) 39 Alanine Aminotransferase (ALT/SGPT) 32 Total Bilirubin 0.5 Sodium Level 141 Potassium Level 3.7 Chloride Level 106 Carbon Dioxide Level 23.7 Anion Gap 11 Estimat Glomerular Filtration Rate 56 Total Creatine Kinase 127 Creatine Kinase MB 2.7 Troponin I 0.29 B-Type Natriuretic Peptide 547 Result Diagram: 09/21/1782409/21/17824 Imaging Last Impressions Chest X-Ray 09/21/17 0816 Signed Impressions: CONCLUSION: 1. Cardiomegaly with mild positive fluid balance superimposed on chronic inter stitial changes. 2. Minimal bibasilar airspace disease, likely atelectasis. Caprini VTE Risk Assessment Caprini VTE Risk Assessment: Mod/High Risk (score >= 2) Caprini Risk Assessment Model Point Value = 1 Point Value = 2 Point Value = 3 Point Value = 5 Age 41-60 Minor surgery BMI > 25 kg/m2 Swollen legs Varicose veins or History of unexplained or recurrent spontaneous Oral contraceptives or hormone replacement Sepsis (< 1 month) Serious lung disease, including pneumonia (< 1 month) Abnormal pulmonary function Acute myocardial infarction Congestive heart failure (< 1 month) History of inflammatory bowel disease Medical patient at bed rest Age 61-74 Arthroscopic surgery Major open surgery (> 45 min) Laparoscopic surgery (> 45 min) Malignancy Confined to bed (> 72 hours) Immobilizing plaster cast Central venous access Age >= 75 History of VTE Family history of VTE Factor V Leiden Prothrombin [id number] Lupus anticoagulant Anticardiolipin antibodies Elevated serum homocysteine Heparin-induced thrombocytopenia Other congenital or acquired thrombophilia Stroke (< 1 month) Elective arthroplasty Hip, pelvis, or leg fracture Acute spinal cord injury (< 1 month) Prophylaxis Regimen Total Risk Factor Score Risk Level Prophylaxis Regimen 0-1 Low Early ambulation 2 Moderate Order ONE of the following: *Sequential Compression Device (SCD) *Heparin 5000 units SQ BID 3-4 Higher Order ONE of the following medications: *Heparin 5000 units SQ TID *Enoxaparin/Lovenox 40 mg SQ daily (WT < 150 kg, CrCl > 30 mL/min) *Enoxaparin/Lovenox 30 mg SQ daily (WT < 150 kg, CrCl > 10-29 mL/min) *Enoxaparin/Lovenox 30 mg SQ BID (WT < 150 kg, CrCl > 30 mL/min) AND/OR *Sequential Compression Device (SCD) 5 or more Highest Order ONE of the following medications: *Heparin 5000 units SQ TID (Preferred with Epidurals) *Enoxaparin/Lovenox 40 mg SQ daily (WT < 150 kg, CrCl > 30 mL/min) *Enoxaparin/Lovenox 30 mg SQ daily (WT < 150 kg, CrCl > 10-29 mL/min) *Enoxaparin/Lovenox 30 mg SQ BID (WT < 150 kg, CrCl > 30 mL/min) AND *Sequential Compression Device (SCD) Assessment and Plan Assessment and Plan 1. Acute exacerbation of chronic systolic congestive heart failure: Continue diuresis with Lasix IV. Check 2D echocardiogram. Consult patient's change management lead. Monitor on telemetry. Continue Coreg. 2. Elevated troponin: Likely at baseline. Check serial cardiac enzymes. 3. Hypertension: Continue Lasix, captopril, Coreg. 4. Atrial fibrillation: Continue Coreg. Continue Eliquis. 5. DVT prophylaxis: Eliquis. Elias Horton MD Sep 21, 2017 11:14
[2017-09-21] MEDS ORDERED: FUROSEMIDE 20 MG/2 ML VIAL IV PUSH ONE (11:30)
[2017-09-21] MEDS: POTASSIUM CHLORIDE 20 MEQ CONTROLLED RELEASE TAB PO SCH (12:07)
--- NOTE | 2017-09-21 15:20 | MB ---
cc: Reta Vu MD DATE: 09/21/2017 HISTORY OF PRESENT ILLNESS: Ms. Lin is a very pleasant 77-year-old white female with history of ischemic cardiomyopathy, ejection fraction less than 30%, chronic systolic congestive heart failure, coronary bypass and left circumflex stenting, Medtronic Bi-V ICD and AV janet ablation, who presented with severe shortness of breath. Early this morning, she started to develop shortness of breath, took Lasix and within an hour, her symptoms progressively worsened and she presented to the emergency room. Her device was interrogated this morning and her OptiVol has reportedly been unremarkable. The patient's symptoms have improved with IV Lasix. She has not had any angina. PAST MEDICAL HISTORY: Positive for recent admission for flash pulmonary edema on 08/29/2017, history of chronic systolic congestive heart failure, ejection fraction less than 30%, ischemic cardiomyopathy, left circumflex artery stenting, coronary bypass, Medtronic biventricular ICD, history of AV janet ablation, dyslipidemia, hypertension, history of skin cancer, cholecystectomy, tubal ligation, tonsillectomy. MEDICATIONS: Include: 1. Captopril. 2. Flonase. 3. Claritin. 4. Aspirin. 5. Doxycycline. 6. Eliquis. 7. Lasix. 8. Coreg. ALLERGIES: PROPOXYPHENE, PROCAINE, MEPERIDINE, LOSARTAN, LIDOCAINE, FEXOFENADINE, EPINEPHRINE, DILTIAZEM, DIGOXIN, DIAZEPAM, CODEINE, CIPROFLOXACIN, CETIRIZINE, ATORVASTATIN, ATENOLOL, AMOXICILLIN, ADHESIVE, ACETAMINOPHEN, LOVASTATIN. SOCIAL HISTORY: The patient quit smoking in 1989. She drinks a glass of wine daily. FAMILY HISTORY: Positive for heart disease. REVIEW OF SYSTEMS: Otherwise negative. PHYSICAL EXAMINATION: VITAL SIGNS: Blood pressure 135/71, pulse 86, regular. HEENT: Negative. NECK: 2+ carotid upstrokes. No bruits. LUNGS: Clear with decreased breath sounds at bases. HEART: Regular with no murmur or gallop. ABDOMEN: Soft. No bruits. EXTREMITIES: Trace edema, 1+ distal pulses. NEUROLOGIC: Grossly nonfocal. LABORATORY DATA: EKG was reviewed and showed biventricular pacing and PVCs. Hemoglobin 15.6, potassium 3.7, creatinine 1.0, magnesium 2.0, AST 39, ALT 32. Troponin 0.29. BNP 547. ASSESSMENT AND PLAN: 1. Acute exacerbation of chronic systolic congestive heart failure. 2. Ischemic cardiomyopathy with severe left ventricular systolic dysfunction. 3. Mildly elevated troponin. 4. Coronary artery disease with a history of coronary bypass and coronary intervention. 5. Hypertension. 6. Atrial fibrillation. 7. Status post Medtronic Bi-V ICD placement. Ms. Lin will be monitored on telemetry. We will continue IV diuresis. We will continue therapy for congestive heart failure. Her troponin is slightly elevated, but is unchanged from her previous admission. I will follow her for cardiology during her hospitalization. She will follow up with Dr. Marie, her primary computer numerical control programmer, in his office after discharge. Reta Vu MD OQ/TL , 02:44 PM , 03:19 PM MTDLise
[2017-09-21 15:48] LABS: TROPONIN I 0.58 NG/ML (0.02-0.05)
[2017-09-21] MEDS: FUROSEMIDE 40 MG/4 ML VIAL IV PUSH SCH (17:15)
[2017-09-21] MEDS: APIXABAN 5 MG TABLET PO SCH (20:28)
[2017-09-21] MEDS: CARVEDILOL 12.5 MG TAB PO SCH (20:28)
[2017-09-21] MEDS: FLUTICASONE PROPIONATE 50 MCG/ACT 16 GM NASAL SPRAY NASAL SCH (20:28)
[2017-09-21] MEDS: CAPTOPRIL 50 MG TAB PO SCH (20:28)
[2017-09-21] MEDS: SODIUM CHLORIDE 0.9% FLUSH 10 ML FLUSH IV FLUSH SCH (20:28)
[2017-09-21] MEDS: DOCUSATE SODIUM 50 MG/SENNA 8.6 MG TAB PO SCH (21:00)
[2017-09-21 21:13] LABS: TROPONIN I 0.64 NG/ML (0.02-0.05)
[2017-09-21] MEDS ORDERED: DOXYCYCLINE HYCLATE 100 MG CAP PO ONE (21:30)
--- NOTE | 2017-09-21 22:31 | EKG ---
Date Performed: 09/21/2017 Time Performed: 20:38:54 PTAGE: 77 years EKG: Ventricular pacing Pacemaker rhythm - no further analysis Abnormal ECG probably No signifi cant change from prior electrocardiogram. . PREVIOUS TRACING : 09/21/2017 08.30 DOCTOR: Pravin Juares Interpretating Date/Time 09/21/2017 22:30:02
--- NOTE | 2017-09-21 22:43 | EKG ---
Date Performed: 09/21/2017 Time Performed: 08:30:36 PTAGE: 77 years EKG: ELECTRONIC VENTRICULAR PACEMAKER PVCS ABNORMAL RHYTHM ECG PREVIOUS TRACING : 08/29/2017 18.58 Since the previous tracing, no significant change noted DOCTOR: Howie Gonzalez Interpretating Date/Time 09/21/2017 22:42:02
[2017-09-22] VITALS (25 sets, daily range): BP systolic 110–140; BP diastolic 61–78; PULSE 58–84; RESP 18; TEMP 97.9–98.2; O2SAT 93–98
[2017-09-22 05:40] LABS: AUTOMATED NEUTROPHIL # 3.7 TH/MM3 (1.8-7.7); BASOPHIL % 0.2 % (0.0-2.0); EOSINOPHIL # 0.2 TH/MM3 (0-0.4); EOSINOPHIL % 2.4 % (0.0-4.0); HEMATOCRIT 40.2 % (35.0-46.0); HEMOGLOBIN 13.6 GM/DL (11.6-15.3); LYMPH % 30.2 % (9.0-44.0); LYMPHOCYTE # 1.9 TH/MM3 (1.0-4.8); MEAN CELL VOLUME 92.7 FL (80.0-100.0); MEAN CORPUSCULAR HEMOGLOBIN 31.3 PG (27.0-34.0); MEAN CORPUSCULAR HGB CONC 33.8 % (32.0-36.0); MEAN PLATELET VOLUME 8.4 FL (7.0-11.0); MONO % 9.2 % (0.0-8.0); MONOCYTE # 0.6 TH/MM3 (0-0.9); PLATELET COUNT 151 TH/MM3 (150-450); RED BLOOD COUNT 4.34 MIL/MM3 (4.00-5.30); RED CELL DISTRIBUTION WIDTH 14.2 % (11.6-17.2); WHITE BLOOD COUNT 6.4 TH/MM3 (4.0-11.0)
[2017-09-22 05:57] LABS: BICARBONATE 29.3 MEQ/L (21.0-32.0); CALCIUM 8.5 MG/DL (8.5-10.1); CREATININE 0.72 MG/DL (0.50-1.00)
[2017-09-22] MEDS: CARVEDILOL 12.5 MG TAB PO SCH (08:33)
[2017-09-22] MEDS: FUROSEMIDE 40 MG/4 ML VIAL IV PUSH SCH ×2 (08:33→17:06)
[2017-09-22] MEDS: POTASSIUM CHLORIDE 20 MEQ CONTROLLED RELEASE TAB PO SCH (08:33)
[2017-09-22] MEDS: CAPTOPRIL 50 MG TAB PO SCH (08:34)
[2017-09-22] MEDS: APIXABAN 5 MG TABLET PO SCH (08:34)
[2017-09-22] MEDS: FLUTICASONE PROPIONATE 50 MCG/ACT 16 GM NASAL SPRAY NASAL SCH (08:35)
[2017-09-22] MEDS: SODIUM CHLORIDE 0.9% FLUSH 10 ML FLUSH IV FLUSH SCH (08:35)
[2017-09-22] MEDS: DOCUSATE SODIUM 50 MG/SENNA 8.6 MG TAB PO SCH (08:37)
--- NOTE | 2017-09-22 08:52 | HHI.PR ---
Subjective Remarks Pt denies any chest pains, states that her SOB has completely resolved at rest and w ambulation. denies any nausea or vomiting. Objective Vitals Vital Signs Date Time Temp Pulse Resp B/P (MAP) Pulse Ox O2 Delivery O2 Flow Rate FiO2 09/22/17 07:15 97.9 71 18 132/75 (94) 93 09/22/17 07:15 93 Room Air 09/22/17 06:06 76 09/22/17 05:29 62 09/22/17 05:27 98.1 69 140/69 (92) 95 09/22/17 04:33 62 09/22/17 03:22 58 09/22/17 02:36 62 09/22/17 01:02 76 09/22/17 00:13 98 Nasal Cannula 2.00 09/22/17 00:12 98.2 63 127/62 (83) 98 09/22/17 00:11 66 09/21/17 23:00 63 09/21/17 22:41 62 09/21/17 22:18 94 Nasal Cannula 2.00 09/21/17 21:06 75 09/21/17 20:21 75 09/21/17 19:57 98.3 69 117/58 (77) 92 09/21/17 19:17 80 09/21/17 18:06 82 09/21/17 17:00 84 09/21/17 16:22 94 21 09/21/17 16:01 77 09/21/17 15:12 98.1 72 18 128/81 (97) 95 09/21/17 15:12 76 09/21/17 14:02 86 09/21/17 13:12 65 09/21/17 12:05 88 09/21/17 11:39 09/21/17 11:03 70 18 135/71 (92) 95 Nasal Cannula 2.00 I/O 09/21/17 09/21/17 09/21/17 09/22/17 09/22/17 09/22/17 07:00 15:00 23:00 07:00 15:00 23:00 Intake Total 480 ml 720 ml Output Total 700 ml 950 ml Balance -220 ml -230 ml Intake Oral 480 ml 720 ml Output Urine Total 700 ml 950 ml # Bowel Movements 1 Result Diagram: 09/22/17 0451 09/22/17 0451 Imaging Last Impressions Chest X-Ray 09/21/17 0816 Signed Impressions: CONCLUSION: 1. Cardiomegaly with mild positive fluid balance superimposed on chronic inter stitial changes. 2. Minimal bibasilar airspace disease, likely atelectasis. Objective Remarks GENERAL: sitting up in bed, appears comfortable. CARDIOVASCULAR: Regular rate and rhythm without murmurs RESPIRATORY: Decreased breath sounds at both bases, however no crackles or wheezes. GASTROINTESTINAL: Abdomen soft, non-tender, nondistended. EXTREMITIES: No lower extremity edema. No calf tenderness. A/P Problem List: (1) Elevated troponin I level ICD Code: R79.89 - Elevated troponin I level Status: Acute (2) Acute on chronic systolic congestive heart failure ICD Code: I50.23 - Acute on chronic systolic congestive heart failure Status: Resolved (3) ICD (implantable cardioverter-defibrillator) in place ICD Code: Z95.810 - Presence of automatic (implantable) cardiac defibrillator (4) Hypertension ICD Code: I10 - Hypertension Status: Chronic (5) Coronary artery disease ICD Code: I25.10 - Coronary artery disease Status: Chronic Assessment and Plan 1. Acute exacerbation of chronic systolic congestive heart failure: Continue diuresis with Lasix IV then transition to po if ok w cards. Check 2D echocardiogram. Dr. Vu, houseman, evaluated the patient. Monitor on telemetry. Continue Coreg. 2. Elevated troponin: Trop 0.29--> 0.58--> 0.64. Pt is chest pain free. awaiting final recs from cards. 3. Hypertension: Continue Lasix, captopril, Coreg. 4. Atrial fibrillation: Continue Coreg. Continue Eliquis. 5. DVT prophylaxis: Eliquis. Discharge Planning awaiting final recs from cards. 2D echo pending. Ana Man MD Sep 22, 2017 08:52
[2017-09-22] MEDS ORDERED: FUROSEMIDE 40 MG TAB PO SCH (09:00)
[2017-09-22] MEDS ORDERED: POTASSIUM CHLORIDE 20 MEQ CONTROLLED RELEASE TAB PO ONE (09:00)
[2017-09-22] MEDS ORDERED: LORATADINE 10 MG TAB PO SCH (09:00)
[2017-09-22] MEDS ORDERED: ASPIRIN 81 MG CHEW TAB CHEW SCH (09:00)
--- NOTE | 2017-09-22 16:20 | ECHRPT ---
Indication: HEART FAILURE CONCLUSIONS Mildly dilated left ventricle. Mild concentric left ventricular hypertrophy. The left ventricular systolic function is severely reduced with an estimated ejection fraction in th e range of 20-25%. A pacemaker wire is noted. The left atrial size is [id number] dilated. The right atrial size is mildly dilated. There is a pacemaker wire present in the right atrial cavity. Mild mitral valve regurgitation. There is mild tricuspid valve regurgitation. The estimated pulmonary arterial pressure is 33 mmHg. BP: / HR: Rhythm: Sinus MEASUREMENTS (Male / Female) Normal Values Technical Quality:Fair 2D ECHO LV Diastolic Diameter PLAX 6.4 cm 4.2 - 5.9 / 3.9 - 5.3 cm LV Systolic Diameter PLAX 6.0 cm IVS Diastolic Thickness 1.2 cm 0.6 - 1.0 / 0.6 - 0.9 cm LVPW Diastolic Thickness 1.2 cm 0.6 - 1.0 / 0.6 - 0.9 cm LV Relative Wall Thickness 0.4 RV Internal Dim ED PLAX 2.3 cm LA Systolic Diameter LX 4.6 cm 3.0 - 4.0 / 2.7 - 3.8 cm DOPPLER AV Peak Velocity 153.0 cm/s AV Peak Gradient 9.4 mmHg AV Mean Gradient 5.0 mmHg AV Velocity Time Integral 27.7 cm LVOT Peak Velocity 50.4 cm/s LVOT Peak Gradient 1.0 mmHg LVOT Velocity Time Integral 9.0 cm Mitral E Point Velocity 71.1 cm/s Mitral A Point Velocity 107.0 cm/s Mitral E to A Ratio 0.7 LV E' Lateral Velocity 6.3 cm/s Mitral E to LV E' Lateral Ratio 11.2 LV E' Septal Velocity 3.7 cm/s Mitral E to LV E' Septal Ratio 19.2 TR Peak Velocity 238.0 cm/s TR Peak Gradient 22.7 mmHg Right Atrial Pressure 10.0 mmHg Pulmonary Artery Systolic Pressu 32.7 mmHg Right Ventricular Systolic Press 32.7 mmHg PV Peak Velocity 69.2 cm/s PV Peak Gradient 1.9 mmHg FINDINGS LEFT VENTRICLE Mildly dilated left ventricle. Mild concentric left ventricular hypertrophy. The left ventricular systolic function is severely reduced with an estimated ejection fraction in th e range of 20-25%. RIGHT VENTRICLE Normal right ventricular size and systolic function. A pacemaker wire is noted. LEFT ATRIUM The left atrial size is [id number] dilated. RIGHT ATRIUM The right atrial size is mildly dilated. There is a pacemaker wire present in the right atrial cavity. ATRIAL SEPTUM No atrial level shunt is demonstrated by color flow Doppler interrogation. AORTA The aortic root and proximal ascending aorta are normal in size on limited imaging. MITRAL VALVE Mild mitral valve regurgitation. AORTIC VALVE Trileaflet aortic valve. No aortic valve stenosis or regurgitation. TRICUSPID VALVE There is mild tricuspid valve regurgitation. The estimated pulmonary arterial pressure is 32.7 mmHg. PULMONARY VALVE No pulmonary valve regurgitation or stenosis. VESSELS The inferior vena cava is normal in size. PERICARDIUM No pericardial effusion. Reta Vu MD, FACC (Electronically Signed) Final Date:22 September 2017 16:19
--- NOTE | 2017-09-22 16:25 | PD.CARD.PN ---
Subjective Subjective Remarks No CP or SOB, feels back to baseline Objective Medications Current Medications Medications (Trade) Dose Ordered Sig/Cooper Route Start Time Stop Time Status Last Admin (Eliquis) 5 mg BID PO 09/21/17 21:00 09/22/17 08:34 (Aspirin Chew) 81 mg DAILY CHEW 09/22/17 09:00 09/22/17 08:34 (Capoten) 50 mg BID PO 09/21/17 21:00 09/22/17 08:34 (Coreg) 12.5 mg BID PO 09/21/17 21:00 09/22/17 08:33 (Claritin) 10 mg DAILY PO 09/22/17 09:00 (Flonase Faustino Spr) 1 spray BID NASAL 09/21/17 21:00 09/22/17 08:35 (NS Flush) 2 ml UNSCH PRN IV FLUSH 09/21/17 10:45 (NS Flush) 2 ml BID IV FLUSH 09/21/17 21:00 09/22/17 08:35 (Tylenol) 650 mg Q4H PRN PO 09/21/17 10:45 (Zofran Inj) 4 mg Q6H PRN IVP 09/21/17 10:45 (Narcan Inj) 0.4 mg UNSCH PRN IV PUSH 09/21/17 10:45 (Allison-Colace) 1 tab BID PO 09/21/17 21:00 (Milk Of Magnesia Liq) 30 ml Q12H PRN PO 09/21/17 10:45 (Senokot) 17.2 mg Q12H PRN PO 09/21/17 10:45 (Dulcolax Supp) 10 mg DAILY PRN RECTAL 09/21/17 10:45 (Lactulose Liq) 30 ml DAILY PRN PO 09/21/17 10:45 (Lasix Inj) 40 mg BID@,18 IV PUSH 09/21/17 18:00 09/22/17 08:33 (KCl) 20 meq DAILY PO 09/21/17 11:30 09/22/17 08:33 Vital Signs / I&O Vital Signs Date Time Temp Pulse Resp B/P (MAP) Pulse Ox O2 Delivery O2 Flow Rate FiO2 09/22/17 16:00 67 09/22/17 15:10 98.0 71 18 110/61 (77) 95 6/26/18 15:10 95 Room Air 09/22/17 15:00 72 09/22/17 14:00 72 09/22/17 13:00 71 09/22/17 12:00 61 09/22/17 11:15 98.1 72 18 138/78 (98) 93 09/22/17 11:15 93 Room Air 09/22/17 11:00 72 09/22/17 10:00 71 09/22/17 09:35 95 21 09/22/17 09:00 66 09/22/17 08:00 84 09/22/17 07:15 97.9 71 18 132/75 (94) 93 09/22/17 07:15 93 Room Air 09/22/17 07:00 66 09/22/17 06:06 76 09/22/17 05:29 62 09/22/17 05:27 98.1 69 140/69 (92) 95 09/22/17 04:33 62 09/22/17 03:22 58 09/22/17 02:36 62 09/22/17 01:02 76 09/22/17 00:13 98 Nasal Cannula 2.00 09/22/17 00:12 98.2 63 127/62 (83) 98 09/22/17 00:11 66 09/21/17 23:00 63 09/21/17 22:41 62 09/21/17 22:18 94 Nasal Cannula 2.00 09/21/17 21:06 75 09/21/17 20:21 75 09/21/17 19:57 98.3 69 117/58 (77) 92 09/21/17 19:17 80 09/21/17 18:06 82 09/21/17 17:00 84 I/O 09/21/17 09/21/17 09/21/17 09/22/17 09/22/17 09/22/17 07:00 15:00 23:00 07:00 15:00 23:00 Intake Total 480 ml 720 ml Output Total 700 ml 950 ml Balance -220 ml -230 ml Intake Oral 480 ml 720 ml Output Urine Total 700 ml 950 ml # Bowel Movements 1 Physical Exam GENERAL: In NAD. SKIN: Warm and dry. HEAD: Normocephalic. EYES: No scleral icterus. No injection or drainage. NECK: Supple, trachea midline. No JVD or lymphadenopathy. CARDIOVASCULAR: Regular rate and rhythm without murmurs, gallops, or rubs. RESPIRATORY: Breath sounds equal bilaterally. No accessory muscle use. GASTROINTESTINAL: Abdomen soft, non-tender, nondistended. MUSCULOSKELETAL: No cyanosis, or edema. Laboratory Laboratory Tests Test 09/21/17 20:34 09/22/17 04:51 Total Creatine Kinase 142 U/L Troponin I 0.64 NG/ML White Blood Count 6.4 TH/MM3 Red Blood Count 4.34 MIL/MM3 Hemoglobin 13.6 GM/DL Hematocrit 40.2 % Mean Corpuscular Volume 92.7 FL Mean Corpuscular Hemoglobin 31.3 PG Mean Corpuscular Hemoglobin Concent 33.8 % Red Cell Distribution Width 14.2 % Platelet Count 151 TH/MM3 Mean Platelet Volume 8.4 FL Neutrophils (%) (Auto) 58.0 % Lymphocytes (%) (Auto) 30.2 % Monocytes (%) (Auto) 9.2 % Eosinophils (%) (Auto) 2.4 % Basophils (%) (Auto) 0.2 % Neutrophils # (Auto) 3.7 TH/MM3 Lymphocytes # (Auto) 1.9 TH/MM3 Monocytes # (Auto) 0.6 TH/MM3 Eosinophils # (Auto) 0.2 TH/MM3 Basophils # (Auto) 0.0 TH/MM3 CBC Comment DIFF FINAL Differential Comment Blood Urea Nitrogen 14 MG/DL Creatinine 0.72 MG/DL Random Glucose 94 MG/DL Calcium Level 8.5 MG/DL Sodium Level 142 MEQ/L Potassium Level 3.4 MEQ/L Chloride Level 105 MEQ/L Carbon Dioxide Level 29.3 MEQ/L Anion Gap 8 MEQ/L Estimat Glomerular Filtration Rate 79 ML/MIN Assessment and Plan Problem List: (1) Acute on chronic systolic congestive heart failure ICD Codes: I50.23 - Acute on chronic systolic congestive heart failure Status: Resolved (2) Coronary artery disease ICD Codes: I25.10 - Coronary artery disease Status: Chronic (3) Elevated troponin I level ICD Codes: R79.89 - Elevated troponin I level Status: Acute (4) Hypertension ICD Codes: I10 - Hypertension Status: Chronic (5) Afib ICD Codes: I48.91 - Unspecified atrial fibrillation Status: Chronic (6) ICD (implantable cardioverter-defibrillator) in place ICD Codes: Z95.810 - Presence of automatic (implantable) cardiac defibrillator Assessment and Plan Overall improvement with diuresis. Will add spironolactone. Echo with severe LV systolic dysfunction. OK to discharge home. F/u w Dr. Marie soon after discharge. Reta Vu MD Sep 22, 2017 16:25
[2017-09-22] MEDS ORDERED: SPIRONOLACTONE 25 MG TAB PO SCH (16:30)
[2017-09-22] MEDS ORDERED: SPIR25 PO (17:42)
== END 2017-09-22 18:10 | disposition home or self-care (01) | DRG 293 ==
LOC: NEPC 08:07 → NEDA 10:32 → HCPC 11:42
PROVIDERS: ADMIT Hospitalist; ATTEND Hospitalist
PROC: B24BZZZ Ultrasonography of Heart with Aorta (ICD-10-PCS; principal; 2017-09-22)
DX: I11.0 Hypertensive heart disease with heart failure (principal); I50.23 Acute on chronic systolic (congestive) heart failure; I48.2 Chronic atrial fibrillation; I25.5 Ischemic cardiomyopathy; Z95.1 Presence of aortocoronary bypass graft; I25.10 Atherosclerotic heart disease of native coronary artery without angina pectoris; R74.8 Abnormal levels of other serum enzymes; E78.5 Hyperlipidemia, unspecified; Z95.810 Presence of automatic (implantable) cardiac defibrillator; Z85.828 Personal history of other malignant neoplasm of skin; Z79.01 Long term (current) use of anticoagulants; Z79.82 Long term (current) use of aspirin; Z87.891 Personal history of nicotine dependence; Z82.3 Family history of stroke
CPT/HCPCS: 71046; 80048; 80053; 82550; 82552; 83735; 83880; 84484; 85025; 85610; 85730; 93005; 93306; J1940